=== PATIENT | female | born 1960 ===

== ENCOUNTER 2018-07-09 12:39 | Inpatient (IN) | payer MEDICARE, MEDICAID ==
--- NOTE | 2018-07-09 13:08 | ED PDOC ---
Arrival/HPI - General Chief Complaint: High Blood Pressure Time Seen by Provider: 07/09/18 12:45 Historian: Patient - History of Present Illness Narrative History of Present Illness (Text): 07/09/18 13:05 A 58 year old female, whose past medical history includes HTN, asthma, hypercholesterolemia, DM, and COPD, hypothyroidism, presents to the emergency department with a complaint of left sided body numbness. Patient reports that yesterday she began to experience epigastric abdominal discomfort that radiated towards her chest. Today, at around 10 am, patient reports that she developed numbness to the left side of her face, upper and lower extremity. Patient notes that she has chronic neck and back pain. She states that she has been feeling weak and lightheaded. Patient denies fevers, chills, shortness of breath, dyspnea on exertion, cough, nausea, vomiting, diarrhea, urinary/bowel changes, or any other complaint. PMD: Dr. Armstrong Time/Duration: 4-6 hours Symptom Onset: Sudden Symptom Course: Unchanged Activities at Onset: Rest, Light Context: Home Past Medical History - Provider Review Nursing Documentation Reviewed: Yes - Infectious Disease Hx of Infectious Diseases: None - Tetanus Immunization Tetanus Immunization: Unknown - Cardiac Hx Cardiac Disorders: Yes Hx Hypertension: Yes - Pulmonary Hx Respiratory Disorders: Yes Hx Asthma: Yes Hx Chronic Obstructive Pulmonary Disease (COPD): Yes Hx Emphysema: Yes - Neurological Hx Neurological Disorder: Yes HX Cerebrovascular Accident: Yes Hx Dizziness: Yes Hx Transient Ischemic Attacks (TIA): Yes - HEENT Hx HEENT Disorder: No Hx Deafness: Yes (L [place]) - Renal Hx Renal Disorder: Yes Hx Kidney Stones: Yes - Endocrine/Metabolic Hx Endocrine Disorders: Yes Hx Diabetes Mellitus Type 1: Yes Hx Diabetes Mellitus Type 2: Yes Hx Hypothyroidism: Yes - Hematological/Oncological Hx Blood Disorders: No - Integumentary Hx Dermatological Disorder: No - Musculoskeletal/Rheumatological Hx Musculoskeletal Disorders: Yes Hx Back Pain: Yes Hx Falls: No Hx Herniated Disk: Yes Hx Unsteady Gait: Yes (CANE) - Gastrointestinal Hx Gastrointestinal Disorders: Yes Hx Colostomy: Yes Hx Gastritis: Yes - Genitourinary/Gynecological Hx Genitourinary Disorders: No Hx Bladder Stone: Yes Hx Urinary Tract Infection: Yes Other/Comment: TUMMY TUCK,NUMEROUS ABORTIONS THAT SHE CANNOT REMEMBER HOW MANY. - Psychiatric Hx Psychophysiologic Disorder: No Hx Physical Abuse: No Hx Sexual Abuse: No Hx Substance Use: No Other/Comment: SMOKED CIGARETTES A TEENAGER - Surgical History Hx Cholecystectomy: Yes Hx Hysterectomy: Yes Other/Comment: BREAST IMPLANT REMOVAL AND AUGMENTATION DONE AFTER. - Anesthesia Hx Anesthesia: Yes Hx Anesthesia Reactions: No Hx Malignant Hyperthermia: No - Suicidal Assessment Feels Threatened In Home Enviroment: No Family/Social History - Physician Review Nursing Documentation Reviewed: Yes Family/Social History: No Known Family HX Smoking Status: Never Smoked Hx Alcohol Use: No Hx Substance Use: No Hx Substance Use Treatment: No Allergies/Home Meds Allergies/Adverse Reactions: Allergies apple Allergy (Verified 07/09/18 12:50) SWELLING dennison Allergy (Verified 07/09/18 12:50) SHORTNESS OF BREATH pear Allergy (Verified 07/09/18 12:50) SWELLING Home Medications: Home Meds Medication Instructions Recorded Confirmed Fluticasone/Salmeterol [Advair 1 puff PO DAILY #0 08/25/14 12/01/17 250-50 Diskus] Albuterol 0.083% [Albuterol 0.083% 0.09 % PO TID PRN #0 07/10/15 12/01/17 Inhal Jeannine (2.5 mg/3 ml) UD] Losartan [Cozaar] 50 mg PO DAILY 05/13/17 12/01/17 MetFORMIN [glucoPHAGE] 1,000 mg PO BID 05/13/17 12/01/17 Insulin Degludec [Tresiba 30 unit SQ HS 12/01/17 12/01/17 Flextouch U-100] Review of Systems - Physician Review All systems were reviewed & negative as marked: Yes - Review of Systems Constitutional: absent: Fevers Respiratory: absent: SOB, Cough Gastrointestinal: Abdominal Pain (epigastric abdominal pain). absent: Stool Changes, Diarrhea, Nausea, Vomiting Genitourinary Female: absent: Urine Output Changes Musculoskeletal: Back Pain (chronic), Neck Pain (chronic) Neurological: Other (Lightheaded and weak) Physical Exam Vital Signs Reviewed: Yes Vital Signs Temp Pulse Resp BP Pulse Ox 07/09/18 12:40 98.2 F 76 18 187/107 H 98 Temperature: Afebrile Blood Pressure: Hypertensive Pulse: Regular Respiratory Rate: Normal Appearance: Positive for: Well-Appearing, Non-Toxic, Comfortable Pain Distress: None Mental Status: Positive for: Alert and Oriented X 3 - Systems Exam Head: Present: Atraumatic, Normocephalic, Other (Subjective left sided numbness to left face.) Pupils: Present: PERRL Extroacular Muscles: Present: EOMI Conjunctiva: Present: Normal Mouth: Present: Moist Mucous Membranes Neck: Present: Normal Range of Motion, Paraspinal Tenderness (Left side of neck), Lymphadenopathy Respiratory/Chest: Present: Clear to Auscultation, Good Air Exchange. No: Respiratory Distress, Accessory Muscle Use Cardiovascular: Present: Regular Rate and Rhythm, Normal S1, S2. No: Murmurs Abdomen: No: Tenderness, Distention, Peritoneal Signs Back: Present: Normal Inspection, Paraspinal Tenderness Upper Extremity: Present: Normal Inspection, Neurovascularly Intact (Subjective left sided numbness to left arm. Strength intact). No: Cyanosis, Edema Lower Extremity: Present: Normal Inspection, Neurovascularly Intact (Subjective left sided numbness to left leg. Strength intact). No: Edema Neurological: Present: GCS=15, CN II-XII Intact, Speech Normal, Motor Func Grossly Intact Skin: Present: Warm, Dry, Normal Color. No: Rashes Psychiatric: Present: Alert, Oriented x 3, Normal Insight, Normal Concentration Medical Decision Making ED Course and Treatment: 07/09/18 13:09 Impression: A 58 year old female presents to the emergency department with a complaint of left sided body numbness that began at 10 am today. Differential Diagnosis included but are not limited to: reflux, URI/ viral syndrome, acute on chronic neck and back pain vs. CVA Plan: -- Head CT -- EKG -- Chest X-ray -- Labs -- Reassess and disposition Prior Visits: Notes and results from previous visits were reviewed. Progress Notes: 07/09/18 13:03: Code stroke called. EKG: Ordered, reviewed, and independently interpreted the EKG. Rate : 69 BPM Rhythm : NSR PROCEDURE: CT HEAD WITHOUT CONTRAST. Dictator : Jose E Adams MD Report Date : 07/09/2018 13:22:28 IMPRESSION: Normal CT of the Head. 07/09/18 13:23: Case discussed in detail with Dr. Toledo. Explaining patient history and exam. Patient onset of symptoms clearly defined as 10 am. Patient has left sided numbness of face, arm, and leg. NIH score of 2. BP improved to 153/93. Discussed risk factors of tPA with patient including risk of bleeding. Patient understands and agrees to receiving med as recommended by me and Dr. Toledo. 07/09/18 13:40 Actual weight was entered by CINDY Griffith. TPA ordered with TPA order set. IVF ordered. Blood pressure controlled. 07/09/18 14:11 I started conversation with this patient since 13:23 and it's not till now that she has decided to take the medication. She and I discussed the indications and risk factors with her daughter on the phone as well. The patient agreed to take the medication. 07/09/18 14:13 She was 175/93 blood pressure when I pushed the tPA bolus. Gladis with me at bedside. Chest X-ray Dictator : Jose E Adams MD Report Date : 07/09/2018 14:10:22 IMPRESSION: No active disease. 07/09/18 14:37: Case discussed with Dr. Fernandes who accepts the patient to her service. 07/09/18 14:40: Case discussed with Dr. Tian (Ichthyologist) who accept the patient to the ICU. 07/09/18 14:56 Patient states her left sided numbness feels improved. - Critical Care Critical Care Minutes: 30 minutes - Lab Interpretations I have reviewed the lab results: Yes - RAD Interpretation Radiology Orders: 07/09/18 13:03 HEAD W/O (CODE STROKE) [CT] Stat CHEST PORTABLE [RAD] Stat - EKG Interpretation Interpreted by ED Physician: Yes Type: 12 lead EKG NIHSS Scale ([place]) Time Performed: 12:45 - How Severe is the Stoke Baseline Level of Consciousness: 0=Alert LOC to Questions: 0=Both comments correct LOC to commands: 0=Obeys both correctly Best Gaze: 0=Normal Visual: 0=No visual loss Facial: 0=Normal Motor Arm - Left: 0=No drift Motor Arm - Right: 0=No drift Motor Leg - Left: 0=No drift Motor Leg - Right: 0=No drift Limb Ataxia: 0=Absent Sensory: 1=Mild to moderate loss Best Language: 0=No aphasia Dysarthia: 0=Normal articulation Extinction & Inattention (Neglect): 0=Normal, no object Score: 1 Risk Level: Minor Stroke Risk NIHSS Scale([place]) 2 Time Performed: 14:58 - How Severe is the Stoke Baseline Level of Consciousness: 0=Alert LOC to Questions: 0=Both comments correct LOC to commands: 0=Obeys both correctly Best Gaze: 0=Normal Visual: 0=No visual loss Facial: 0=Normal Motor Arm - Left: 0=No drift Motor Arm - Right: 0=No drift Motor Leg - Left: 0=No drift Motor Leg - Right: 0=No drift Limb Ataxia: 0=Absent Sensory: 1=Mild to moderate loss Best Language: 0=No aphasia Dysarthia: 0=Normal articulation Extinction & Inattention (Neglect): 0=Normal, no object Score: 1 Risk Level: Minor Stroke Risk rTPA Inclusion/Exclusion - Refusal of Treatment Patient Refused Treatment: No - Inclusion Criteria for Altepase Patient is 18 years or Older: Yes The Clinical Diagnosis of Ischemic Stroke That is Causing a Potentially Disabling Neurological Deficit: Yes Time of Onset is Well Established to be Less Than 270 Minute Before Treatment Would Begin: Yes Risk/Benefit Discussed With Patient/Family Member Present: Yes - Exclusion Criteria for Altepase Uncontrolled Hypertension at Time of Treatment (Systolic BP above 185 or Diastolic BP above 110 mmHg): No - Scribe Statement The provider has reviewed the documentation as recorded by the Debraibe Terri Orozco Provider Scribe Attestation: All medical record entries made by the Scribe were at my direction and personally dictated by me. I have reviewed the chart and agree that the record accurately reflects my personal performance of the history, physical exam, medical decision making, and the department course for this patient. I have also personally directed, reviewed, and agree with the discharge instructions and disposition. Disposition/Present on Arrival - Present on Arrival Any Indicators Present on Arrival: No History of DVT/PE: No History of Uncontrolled Diabetes: No Urinary Catheter: No History of Decub. Ulcer: No History Surgical Site Infection Following: None - Disposition Have Diagnosis and Disposition been Completed?: Yes Diagnosis: CVA (cerebral vascular accident) Disposition: HOSPITALIZED Disposition Time: 14:41 Patient Plan: Admission Condition: CRITICAL Referrals: Fred Armstrong MD [Primary Care Provider] - Follow up with primary Forms: [employer] (French)
--- NOTE | 2018-07-09 13:26 | CT ---
Date of service: 07/09/2018 PROCEDURE: CT HEAD WITHOUT CONTRAST. HISTORY: Code Stroke COMPARISON: None available. TECHNIQUE: Axial computed tomography images were obtained through the head/brain without intravenous contrast. Radiation dose: Total exam DLP = 821.78 mGy-cm. This CT exam was performed using one or more of the following dose reduction techniques: Automated exposure control, adjustment of the mA and/or kV according to patient size, and/or use of iterative reconstruction technique. FINDINGS: HEMORRHAGE: No intracranial hemorrhage. BRAIN: No mass effect or edema. No atrophy or chronic microvascular ischemic changes. VENTRICLES: Unremarkable. No hydrocephalus. CALVARIUM: Unremarkable. PARANASAL SINUSES: Unremarkable as visualized. No significant inflammatory changes. MASTOID AIR CELLS: Unremarkable as visualized. No inflammatory changes. OTHER FINDINGS: None. IMPRESSION: Normal CT of the Head.
[2018-07-09 13:28] LABS: BASO # 0.02 K/mm3 (0.0-2.0); BASO % 0.3 % (0.0-3.0); EOS # 0.4 (0.0-0.7); EOS % 6.7 % (1.5-5.0); HEMOGLOBIN 12.5 g/dL (12.0-16.0); LYMPH # 2.2 (1.2-3.4); LYMPH % 37.2 % (22.0-35.0); MEAN CELL VOLUME 88.7 fl (80.0-105.0); MEAN CORPUSCULAR HEMOGLOBIN 28.9 pg (25.0-35.0); MEAN CORPUSCULAR HGB CONC 32.6 g/dl (31.0-37.0); MEAN PLATELET VOLUME 11.2 fl (7.0-11.0); MONO # 0.3 (0.1-0.6); MONO % 5.7 % (1.0-6.0); RBC 4.32 10^6/uL (3.5-6.1); RED CELL DISTRIBUTION WIDTH 13.1 % (11.5-14.5); WHITE BLOOD COUNT 5.8 10^3/uL (4.5-11.0)
[2018-07-09 13:32] LABS: INR 1.12; PARTIAL THROMBOPLASTIN TIME 32.9 Seconds (26.9-38.3); PROTHROMBIN TIME 12.7 SECONDS (9.4-12.5)
[2018-07-09 13:35] VITALS: BMI 35.3
[2018-07-09 13:35] LABS: LDL CHOLESTEROL 95 mg/dL (0-129)
[2018-07-09 13:38] LABS: ALB/GLOB RATIO 1.3 (1.1-1.8); ALT/SGPT 27 U/L (7-56); AST/SGOT 37 U/L (14-36); BLOOD UREA NITROGEN 8 mg/dL (7-21); CALCIUM 10.5 mg/dL (8.4-10.5); GFR NON-AFRICAN AMERICAN > 60; HDL CHOLESTEROL 37 mg/dL (29-60); TROPONIN I < 0.01 ng/mL
[2018-07-09] MEDS ORDERED: Sodium Chloride 0.9% 1,000 ML IV SCH ×2 (13:45→21:49)
--- NOTE | 2018-07-09 14:14 | RAD ---
Date of service: 07/09/2018 HISTORY: Code Stroke COMPARISON: 07/10/2015 FINDINGS: LUNGS: No active pulmonary disease. PLEURA: No significant pleural effusion identified, no pneumothorax apparent. CARDIOVASCULAR: No aortic atherosclerotic calcification present. Normal cardiac size. No pulmonary vascular congestion. OSSEOUS STRUCTURES: No significant abnormalities. VISUALIZED UPPER ABDOMEN: Normal. OTHER FINDINGS: None. IMPRESSION: No active disease.
--- NOTE | 2018-07-09 15:24 | CP.PCM.CON ---
<Rd Rubio - Last Filed: 07/09/18 16:32> History of Present Illness - History of Present Illness History of Present Illness: Rd Rubio, PGY-1 ICU Consult Note for Dr. Joiner: CC: L sided numbness and weakness ICU Consult for: s/p tPA Pt is a 58 yo F with pmhx of TIA (30 yrs ago), HTN, asthma, HLD, DM, COPD, and hypothyroidism who presents for L sided face and body heaviness and numbness that began at 10AM this morning when she was trying to get up out of bed, associated with headache, dizziness described as lightheadedness, and blurry vision. States that headache began yesterday and was mild. Reports taking a tylenol which at the time resolved the pain, but today became worse. For the continued headache this AM she took percocet. Pt called her daughter, who saw her and brought her to the hospital. Daughter did not note facial droop at the time. She has been feeling nauseous and had indigestion since yesterday. Since this AM she also reports headache, dizziness described as lightheadedness, and blurry vision L sided body numbness (face, UE, LE) @ 10AM. In the ED pt was assessed and given tPA. At this time the pt denies fever, headache, numbness, tingling, but does admit to continued LLE heaviness and facial numbness. She denies chest pain, palpitations, SOB, cough, abd pain, n/v, c/d, edema, dysuria. She reports h/o TIA 30 years ago, and has strong family history for stroke. Pmhx: TIA (30 yrs ago), HTN, asthma, HLD, DM, COPD, and hypothyroidism Pshx: radha, hysterectomy All: Apple, dennison, pear Soc: Denies any tobacco hx, denies recent etoh or illicit drug use Fam: Son: [place], PMD: Dr. Armstrong Review of Systems - Review of Systems Review of Systems: 12 point ROS reviewed and negative except noted in HPI above. Past Patient History - Infectious Disease Hx of Infectious Diseases: None - Tetanus Immunizations Tetanus Immunization: Unknown - Past Medical History & Family History Past Medical History?: Yes - Past Social History Smoking Status: Never Smoked - CARDIAC Hx Cardiac Disorders: Yes Hx Hypertension: Yes - PULMONARY Hx Respiratory Disorders: Yes Hx Asthma: Yes Hx Chronic Obstructive Pulmonary Disease (COPD): Yes Hx Emphysema: Yes - NEUROLOGICAL Hx Neurological Disorder: Yes HX Cerebrovascular Accident: Yes Hx Dizziness: Yes Hx Transient Ischemic Attacks (TIA): Yes - HEENT Hx HEENT Problems: No Hx Deafness: Yes (L [place]ARAC[place]) - RENAL Hx Chronic Kidney Disease: Yes Hx Kidney Stones: Yes - ENDOCRINE/METABOLIC Hx Endocrine Disorders: Yes Hx Diabetes Mellitus Type 1: Yes Hx Diabetes Mellitus Type 2: Yes Hx Hypothyroidism: Yes - HEMATOLOGICAL/ONCOLOGICAL Hx Blood Disorders: No - INTEGUMENTARY Hx Dermatological Problems: No - MUSCULOSKELETAL/RHEUMATOLOGICAL Hx Musculoskeletal Disorders: Yes Hx Back Pain: Yes Hx Falls: No Hx Herniated Disk: Yes Hx Unsteady Gait: Yes (CANE) - GASTROINTESTINAL Hx Gastrointestinal Disorders: Yes Hx Colostomy: Yes Hx Gastritis: Yes - GENITOURINARY/GYNECOLOGICAL Hx Genitourinary Disorders: No Hx Bladder Stone: Yes Hx Urinary Tract Infection: Yes Other/Comment: TUMMY TUCK,NUMEROUS ABORTIONS THAT SHE CANNOT REMEMBER HOW MANY. - PSYCHIATRIC Hx Psychophysiologic Disorder: No Hx Physical Abuse: No Hx Sexual Abuse: No Hx Substance Use: No Other/Comment: SMOKED CIGARETTES A TEENAGER - SURGICAL HISTORY Hx Cholecystectomy: Yes Hx Hysterectomy: Yes Other/Comment: BREAST IMPLANT REMOVAL AND AUGMENTATION DONE AFTER. - ANESTHESIA Hx Anesthesia: Yes Hx Anesthesia Reactions: No Hx Malignant Hyperthermia: No Meds Allergies/Adverse Reactions: Allergies Allergy/AdvReac Type Severity Reaction Status Date / Time apple Allergy SWELLING Verified 07/09/18 12:50 dennison Allergy SHORTNESS Verified 07/09/18 12:50 OF BREATH pear Allergy SWELLING Verified 07/09/18 12:50 - Medications Medications: Current Medications Sodium Chloride (Sodium Chloride 0.9%) 1,000 mls @ 100 mls/hr IV .Q10H [facility] Last Admin: 07/09/18 14:20 Dose: 100 mls/hr Physical Exam - Constitutional Appears: Non-toxic, No Acute Distress - Head Exam Head Exam: ATRAUMATIC, NORMAL INSPECTION, NORMOCEPHALIC - Eye Exam Eye Exam: EOMI, Normal appearance, PERRL - Respiratory Exam Respiratory Exam: Clear to Auscultation Bilateral, NORMAL BREATHING PATTERN. absent: Accessory Muscle Use, Decreased Breath Sounds, Rales, Rhonchi, Resp iratory Distress, Stridor - Cardiovascular Exam Cardiovascular Exam: RRR, +S1, +S2. absent: Gallop, Rubs - GI/Abdominal Exam GI & Abdominal Exam: Normal Bowel Sounds, Soft. absent: Guarding, Hernia, Rebound, Rigid, Tenderness - Extremities Exam Extremities exam: Positive for: normal capillary refill, normal inspection, pedal pulses present. Negative for: calf tenderness, pedal edema - Back Exam Back exam: NORMAL INSPECTION. absent: CVA tenderness (L), CVA tenderness (R) - Neurological Exam Neurological exam: Alert, Oriented x3 - Expanded Neurological Exam Expanded Patient oriented to: person, place, time Cranial nerves: EOM's Intact: Normal, Facial Palsey w/Forehead Movement: Normal, Facial Sensation: Abnormal Left (States doesnt feel as strong on left but she can feel it ), Nystagmus: Normal, Tongue Deviation: Normal Cerebellar Function: Finger to Nose: Normal, Heel to Mccall: Normal Upper motor neuron: Pronator Drift: Normal, Sensory Extinction: Normal Neuro motor strength exam: Left Upper Extremity: 5, Right Upper Extremity: 5, Left Lower Extremity: 5, Right Lower Extremity: 5 Coma Scale Eye Opening: SPONTANEOUS Coma Scale Motor Response: OBEYS COMMANDS Coma Scale Verbal: Oriented Coma Scale Total: 15 - Psychiatric Exam Psychiatric exam: Normal Affect, Normal Mood - Skin Skin Exam: Dry, Normal Color, Warm Results - Vital Signs Recent Vital Signs: Last Vital Signs Temp 98.2 F 07/09/18 15:15 Pulse 64 07/09/18 15:15 Resp 15 07/09/18 15:15 BP 167/70 H 07/09/18 15:15 Pulse Ox 98 07/09/18 12:40 - Labs Result Diagrams: 07/09/18 13:05 07/09/18 13:05 Labs: Laboratory Results - last 24 hr 07/09/18 07/09/18 07/09/18 13:05 13:05 13:05 WBC 5.8 RBC 4.32 Hgb 12.5 Hct 38.3 MCV 88.7 MCH 28.9 MCHC 32.6 RDW 13.1 Plt Count 167 MPV 11.2 H Neut % (Auto) 50.1 Lymph % (Auto) 37.2 H Sumner % (Auto) 5.7 Eos % (Auto) 6.7 H Baso % (Auto) 0.3 Lymph # (Auto) 2.2 Sumner # (Auto) 0.3 Eos # (Auto) 0.4 Baso # (Auto) 0.02 Absolute Neuts (auto) 2.93 PT 12.7 H INR 1.12 APTT 32.9 Sodium 138 Potassium 4.0 Chloride 105 Carbon Dioxide 25 Anion Gap 12 BUN 8 Creatinine 0.5 L Est GFR ( Amer) > 60 Est GFR (Non-Af Amer) > 60 POC Glucose (mg/dL) Random Glucose 276 H Calcium 10.5 Total Bilirubin 0.4 AST 37 H ALT 27 Alkaline Phosphatase 121 Troponin I < 0.01 Total Protein 7.2 Albumin 4.0 Globulin 3.2 Albumin/Globulin Ratio 1.3 Triglycerides 263 H Cholesterol 153 LDL Cholesterol Direct 95 HDL Cholesterol 37 Lipase Blood Type Antibody Screen BBK History Checked 07/09/18 07/09/18 07/09/18 13:05 13:05 13:58 WBC RBC Hgb Hct MCV MCH MCHC RDW Plt Count MPV Neut % (Auto) Lymph % (Auto) Sumner % (Auto) Eos % (Auto) Baso % (Auto) Lymph # (Auto) Sumner # (Auto) Eos # (Auto) Baso # (Auto) Absolute Neuts (auto) PT INR APTT Sodium Potassium Chloride Carbon Dioxide Anion Gap BUN Creatinine Est GFR ( Amer) Est GFR (Non-Af Amer) POC Glucose (mg/dL) 225 H Random Glucose Calcium Total Bilirubin AST ALT Alkaline Phosphatase Troponin I Total Protein Albumin Globulin Albumin/Globulin Ratio Triglycerides Cholesterol LDL Cholesterol Direct HDL Cholesterol Lipase 165 Blood Type O POSITIVE Antibody Screen Negative BBK History Checked Patient has bt Assessment & Plan - Assessment and Plan (Free Text) Assessment: Pt is a 58 yo F with pmhx of TIA (30 yrs ago), HTN, asthma, HLD, DM, COPD, and hypothyroidism who presents for L sided face and body heaviness and numbness that began at 10AM this morning when she was trying to get up out of bed, associated with headache, dizziness described as lightheadedness, and blurry vision. Plan: Neuro: Ischemic Stroke s/p tPA @ 2:17pm on 07/09/18: - Head CT 07/09 shows: Normal head CT - Pt given tPA as stated - Will continue neurochecks q1 and BP monitoring as per protocol - Will ensure that SBP remains <150 - NIHSS Stroke scale at this time is: 0 (pt assessed after tPA given) - Echo - Hold ASA and other anti-coag meds as pt is on TPA - A1c - Lipid panel - B12, folate, Homocystiene - TSH - f/u CT head in AM Cardio: - Cont home cozaar - As above ensure SBP <150 - Ensure MAP >65 Pulm: - Duoneb PRN - Ensure O2 sat >92 GI: - Protonix for prophylaxis - Passed swallow eval Endo: - Ensure euglycemia and will cont to monitor BS overnight Nephro: - Maintain euvolemia PPx: GI: Protonix DVT: On tPA. Case seen and discussed with Dr. Marisel Rubio, PGY-1 <William Joiner - Last Filed: 07/09/18 17:05> Meds - Medications Medications: Current Medications Albuterol/Ipratropium (Duoneb 3 Mg/0.5 Mg (3 Ml) Ud) 3 ml IH Q2H PRN PRN Reason: Shortness of Breath Atorvastatin Calcium (Lipitor) 10 mg PO DAILY [facility] Sodium Chloride (Sodium Chloride 0.9%) 1,000 mls @ 100 mls/hr IV .Q10H [facility] Last Admin: 07/09/18 14:20 Dose: 100 mls/hr Losartan Potassium (Cozaar) 50 mg PO DAILY [facility] Results - Vital Signs Recent Vital Signs: Last Vital Signs Temp 98.1 F 07/09/18 16:30 Pulse 64 07/09/18 16:30 Resp 16 07/09/18 16:30 BP 149/77 07/09/18 16:30 Pulse Ox 98 07/09/18 12:40 - Labs Result Diagrams: 07/09/18 13:05 07/09/18 13:05 Labs: Laboratory Results - last 24 hr 07/09/18 07/09/18 07/09/18 13:05 13:05 13:05 WBC 5.8 RBC 4.32 Hgb 12.5 Hct 38.3 MCV 88.7 MCH 28.9 MCHC 32.6 RDW 13.1 Plt Count 167 MPV 11.2 H Neut % (Auto) 50.1 Lymph % (Auto) 37.2 H Sumner % (Auto) 5.7 Eos % (Auto) 6.7 H Baso % (Auto) 0.3 Lymph # (Auto) 2.2 Sumner # (Auto) 0.3 Eos # (Auto) 0.4 Baso # (Auto) 0.02 Absolute Neuts (auto) 2.93 PT 12.7 H INR 1.12 APTT 32.9 Sodium 138 Potassium 4.0 Chloride 105 Carbon Dioxide 25 Anion Gap 12 BUN 8 Creatinine 0.5 L Est GFR ( Amer) > 60 Est GFR (Non-Af Amer) > 60 POC Glucose (mg/dL) Random Glucose 276 H Hemoglobin A1c Calcium 10.5 Total Bilirubin 0.4 AST 37 H ALT 27 Alkaline Phosphatase 121 Troponin I < 0.01 Total Protein 7.2 Albumin 4.0 Globulin 3.2 Albumin/Globulin Ratio 1.3 Triglycerides 263 H Cholesterol 153 LDL Cholesterol Direct 95 HDL Cholesterol 37 Lipase Blood Type Antibody Screen BBK History Checked 07/09/18 07/09/18 07/09/18 13:05 13:05 13:05 WBC RBC Hgb Hct MCV MCH MCHC RDW Plt Count MPV Neut % (Auto) Lymph % (Auto) Sumner % (Auto) Eos % (Auto) Baso % (Auto) Lymph # (Auto) Sumner # (Auto) Eos # (Auto) Baso # (Auto) Absolute Neuts (auto) PT INR APTT Sodium Potassium Chloride Carbon Dioxide Anion Gap BUN Creatinine Est GFR ( Amer) Est GFR (Non-Af Amer) POC Glucose (mg/dL) Random Glucose Hemoglobin A1c 8.8 H Calcium Total Bilirubin AST ALT Alkaline Phosphatase Troponin I Total Protein Albumin Globulin Albumin/Globulin Ratio Triglycerides Cholesterol LDL Cholesterol Direct HDL Cholesterol Lipase 165 Blood Type O POSITIVE Antibody Screen Negative BBK History Checked Patient has bt 07/09/18 13:58 WBC RBC Hgb Hct MCV MCH MCHC RDW Plt Count MPV Neut % (Auto) Lymph % (Auto) Sumner % (Auto) Eos % (Auto) Baso % (Auto) Lymph # (Auto) Sumner # (Auto) Eos # (Auto) Baso # (Auto) Absolute Neuts (auto) PT INR APTT Sodium Potassium Chloride Carbon Dioxide Anion Gap BUN Creatinine Est GFR ( Amer) Est GFR (Non-Af Amer) POC Glucose (mg/dL) 225 H Random Glucose Hemoglobin A1c Calcium Total Bilirubin AST ALT Alkaline Phosphatase Troponin I Total Protein Albumin Globulin Albumin/Globulin Ratio Triglycerides Cholesterol LDL Cholesterol Direct HDL Cholesterol Lipase Blood Type Antibody Screen BBK History Checked Assessment & Plan - Assessment and Plan (Free Text) Plan: Patient seen and examined on rounds, with resident, agree with note with following additions/exceptions: Patient is 58 yo F with pmhx of TIA (30 yrs ago), HTN, asthma, HLD, DM, COPD, and hypothyroidism who presents for L sided face and body heaviness and numbness that began at 10AM, given tPA in the ER, after consultation with Neurology. CTH neg. Currently afebrile, HD stable, comfortable in NAD, doing well. Motor strength 5/5 all ext, sensory decreased on left side. ECHO Check Lipid panel, TSH, HgbA1C q1hr Neuro check follow up neurology CTH in AM GI ppx DVT ppx, SCDs Monitor in MICU
--- NOTE | 2018-07-09 16:13 | CARD ---
APPROVED REPORT Date of service: 07/09/2018 EKG Measurement Heart [id number] <Conclusion> Normal sinus rhythm Nonspecific T wave abnormality Abnormal ECG
[2018-07-09] MEDS ORDERED: Albuterol-Ipratrop 3 mg / 0.5 (3 ml) UD IH PRN (16:46)
[2018-07-09] MEDS: Insulin Lispro (HUMAlog) HIGH Coverage SC SCH (22:07)
--- NOTE | 2018-07-10 03:31 | HP ---
DATE OF EXAM: 07/09/2018 HISTORY OF PRESENT ILLNESS: The patient is a 58-year-old who was brought to emergency room because of left-sided numbness, left upper and lower extremity numbness. She has epigastric discomfort later on radiated towards chest area. Denies any nausea or vomiting. The patient states this morning she started to have left facial, upper and lower extremity numbness with some weakness and she was feeling dizzy and lightheaded, so came to emergency room. She met the criteria, she has TPA given and being transferred to ICU for close observation. PAST MEDICAL HISTORY: Significant for: 1. Hypertension. 2. Hyperlipidemia. 3. Noninsulin-dependent diabetes. 4. Hypothyroidism. 5. History of COPD. 6. She also has history of TIA 30 years ago. SURGICAL HISTORY: Significant for cholecystectomy and hysterectomy. FAMILY HISTORY: Significant for CVA in parents. ALLERGIES: SHE IS ALLERGIC TO APPLE, CHERRIES AND PEARS. SOCIAL HISTORY: Denies smoking. No alcohol use. MEDICATIONS AT HOME: She is on Percocet as needed, omeprazole 40 mg daily, Lipitor 10 mg daily, metformin 1000 twice a day, Losartan 50 mg daily, nebulizer treatment. PHYSICAL EXAMINATION GENERAL: She is awake, alert, oriented, able to communicate. VITAL SIGNS: She is afebrile, pulse 63, respirations 15, blood pressure 146/89. LUNGS: Bilateral fair airflow. No rhonchi or crackle. HEART: S1, S2 audible. ABDOMEN: Soft, nontender. No rebound. No guarding. NEUROLOGIC: The patient is awake, alert, able to communicate. No focal deficits. LABORATORY DATA: WBC 5.8, hemoglobin 12.5, hematocrit 38.3, platelets of 167. PT 12.7, INR 1.12. Chemistry: Sodium 138, potassium 4.0, chloride 105, CO2 of 25, BUN 8, creatinine 0.5, blood sugar 276, triglycerides of 263. She had CT scan of the head done that is unremarkable. EKG shows normal sinus rhythm. X-ray of chest is unremarkable. ASSESSMENT: 1. Left sided numbness status post TPA being admitted in intensive care unit. 2. Noninsulin-dependent diabetes. 3. Hypertension. 4. Hyperlipidemia. 5. History of transient ischemic attack almost 38 years ago. PLAN: This patient is being admitted in ICU. Monitor blood sugar and monitor blood pressure closely. Echocardiogram is ordered. Follow up electrolyte and CBC. Lyssa Fernandes MD
--- NOTE | 2018-07-10 06:04 | CP.PCM.PN ---
Subjective - Date & Time of Evaluation Date of Evaluation: 07/10/18 Time of Evaluation: 06:00 - Subjective Subjective: Cozaar was ordered by resident for elevated blood pressure. I ordered Cardene 20 mg PO x 1 . Asymptomtic. Medical record was reviewed. Objective - Vital Signs/Intake and Output Vital Signs (last 24 hours): Temp Pulse Resp BP Pulse Ox 98 F 68 17 132/69 93 L 07/10/18 04:00 07/10/18 04:00 07/10/18 03:00 07/10/18 04:36 07/10/18 03:00 - Medications Medications: Current Medications Albuterol/Ipratropium (Duoneb 3 Mg/0.5 Mg (3 Ml) Ud) 3 ml IH Q2H PRN PRN Reason: Shortness of Breath Atorvastatin Calcium (Lipitor) 10 mg PO DAILY [facility] Sodium Chloride (Sodium Chloride 0.9%) 1,000 mls @ 50 mls/hr IV .Q20H [facility] Last Admin: 07/09/18 22:05 Dose: 50 mls/hr Insulin Human Lispro (Humalog High) 0 units SC ACHS [facility]; Protocol Last Admin: 07/09/18 22:07 Dose: Not Given Losartan Potassium (Cozaar) 50 mg PO DAILY [facility] Metformin HCl (Glucophage) 500 mg PO BID [facility] Last Admin: 07/09/18 20:00 Dose: 500 mg Pantoprazole Sodium (Protonix Inj) 40 mg IVP DAILY [facility] - Labs Labs: 07/09/18 13:05 07/09/18 13:05 PT 12.7 SECONDS (9.4-12.5) H 07/09/18 13:05 INR 1.12 07/09/18 13:05 APTT 32.9 Seconds (26.9-38.3) 07/09/18 13:05 - Constitutional Appears: Well, No Acute Distress - Head Exam Head Exam: ATRAUMATIC, NORMAL INSPECTION, NORMOCEPHALIC - Eye Exam Eye Exam: Normal appearance - ENT Exam ENT Exam: Normal External Ear Exam - Neck Exam Neck Exam: Normal Inspection - Respiratory Exam Respiratory Exam: NORMAL BREATHING PATTERN - Cardiovascular Exam Cardiovascular Exam: absent: JVD - GI/Abdominal Exam GI & Abdominal Exam: absent: Distended - Rectal Exam Rectal Exam: Deferred - Exam Additional comments: Deferred. - Extremities Exam Extremities Exam: Normal Inspection - Back Exam Back Exam: NORMAL INSPECTION - Neurological Exam Neurological Exam: Alert, Awake - Psychiatric Exam Psychiatric exam: Normal Affect, Normal Mood Assessment and Plan - Assessment and Plan (Free Text) Assessment: Elevatged blood pressure. Left sided numbness. HTN. HLD. NIDDM. Plan: Cardene 20 mg PO x 1.
[2018-07-10 06:24] LABS: BASO # 0.04 K/mm3 (0.0-2.0); BASO % 0.6 % (0.0-3.0); EOS # 0.4 (0.0-0.7); EOS % 6.3 % (1.5-5.0); HEMOGLOBIN 12.5 g/dL (12.0-16.0); LYMPH # 2.6 (1.2-3.4); LYMPH % 37.7 % (22.0-35.0); MEAN CORPUSCULAR HEMOGLOBIN 28.5 pg (25.0-35.0); MEAN CORPUSCULAR HGB CONC 32.1 g/dl (31.0-37.0); MEAN PLATELET VOLUME 11.2 fl (7.0-11.0); MONO # 0.4 (0.1-0.6); RBC 4.38 10^6/uL (3.5-6.1); RED CELL DISTRIBUTION WIDTH 13.4 % (11.5-14.5)
[2018-07-10 06:25] LABS: ALB/GLOB RATIO 1.2 (1.1-1.8); ALBUMIN 3.7 g/dL (3.0-4.8); ALT/SGPT 29 U/L (7-56); AST/SGOT 38 U/L (14-36); BLOOD UREA NITROGEN 9 mg/dL (7-21); CALCIUM 9.9 mg/dL (8.4-10.5); GFR NON-AFRICAN AMERICAN > 60; HDL CHOLESTEROL 33 mg/dL (29-60)
[2018-07-10 06:36] LABS: LDL CHOLESTEROL 95 mg/dL (0-129)
[2018-07-10] MEDS: Insulin Lispro (HUMAlog) HIGH Coverage SC SCH ×4 (08:07→22:57)
--- NOTE | 2018-07-10 08:37 | CT ---
Date of service: 07/10/2018 PROCEDURE: CT HEAD WITHOUT CONTRAST. HISTORY: Stroke s/p tPA COMPARISON: Noncontrast head CT performed 07/09/18 TECHNIQUE: Axial computed tomography images were obtained through the head/brain without intravenous contrast. Radiation dose: Total exam DLP = 821.55 mGy-cm. This CT exam was performed using one or more of the following dose reduction techniques: Automated exposure control, adjustment of the mA and/or kV according to patient size, and/or use of iterative reconstruction technique. FINDINGS: HEMORRHAGE: No intracranial hemorrhage. BRAIN: No mass effect or edema. The sampson-white matter differentiation appears intact. Please note that MRI with diffusion imaging is more sensitive in the detection of acute ischemic event. VENTRICLES: No hydrocephalus. CALVARIUM: Unremarkable. PARANASAL SINUSES: Unremarkable as visualized. No significant inflammatory changes. MASTOID AIR CELLS: Unremarkable as visualized. No inflammatory changes. OTHER FINDINGS: None. IMPRESSION: No acute intracranial pathology identified. Preliminary impression was provided by [place].
--- NOTE | 2018-07-10 09:36 | CP.CCUPN ---
<RamiroSultana - Last Filed: 07/10/18 11:00> CCU Subjective - Physician Review Subjective (Free Text): 07/10/18 09:32 Rd Rubio, PGY-1 ICU Progress Note: Pt was seen and examined this AM at bedside. Pt denies any acute complaints at this time and states that she is feeling much better than she was feeling yesterday. Pt denies feeling any of the numbness or heaviness that she was feeling yesterday and admits that she started feeling better soon after the medication was started. At this time the pt denies fevers, chills, headache, lightheadedness, dizziness, numbness, tingling, weakness, chest pain, palpitations, SOB, cough, hemoptysis, abd pain, n/v, c/d, hematemesis, melena, hematochezia, dysuria, hematuria, R sided or L sided weakness, or heaviness. She denies any other acute complaints at this time. CCU Objective - Vital Signs / Intake & Output Vital Signs (Last 4 hours): Vital Signs Pulse Resp BP Pulse Ox 07/10/18 08:26 63 177/82 H 07/10/18 06:30 61 17 96 07/10/18 06:00 66 20 94 L 07/10/18 05:51 62 19 154/73 H 95 07/10/18 05:44 95 Intake and Output (Last 8hrs): Intake & Output 07/09/18 07/10/18 07/10/18 22:59 06:59 14:59 Intake Total 800 Output Total 1200 Balance -400 Weight 199 lb 9.6 oz Intake: IV 600 Right Forearm 600 Oral 200 Output: Urine 1200 Urine, Voided 1200 Other: Voiding Method Bedpan - Physical Exam Head: Positive for: Atraumatic, Normocephalic. Negative for: Contusion, Ecchymosis Pupils: Positive for: PERRL Extroacular Muscles: Positive for: EOMI Conjunctiva: Positive for: Normal Mouth: Positive for: Moist Mucous Membranes Neck: Positive for: Normal Range of Motion, Lymphadenopathy Respiratory/Chest: Positive for: Clear to Auscultation, Good Air Exchange. Negative for: Respiratory Distress, Accessory Muscle Use Cardiovascular: Positive for: Regular Rate and Rhythm, Normal S1, S2. Negative for: Murmurs Abdomen: Positive for: Normal Bowel Sounds. Negative for: Tenderness, Distention, Peritoneal Signs, Rebound Back: Positive for: Normal Inspection. Negative for: CVA Tenderness, Midline Tenderness Upper Extremity: Positive for: Normal Inspection, Normal ROM, NORMAL PULSES, Neurovascularly Intact. Negative for: Cyanosis, Edema Lower Extremity: Positive for: Normal Inspection, Neurovascularly Intact, Capillary Refill < 2 s. Negative for: Edema Neurological: Positive for: GCS=15, CN II-XII Intact, Speech Normal, Motor Func Grossly Intact, Normal Sensory Function, Normal Cerebellar Funct, Memory Normal Skin: Positive for: Warm, Dry, Normal Color. Negative for: Rashes Psychiatric: Positive for: Alert, Oriented x 3, Normal Insight, Normal Concentration Other physical findings (Free Text): Patient oriented to: person, place, time Cranial nerves: EOM's Intact: Normal, Facial Palsey w/Forehead Movement: Normal, Facial Sensation: Abnormal Left (States doesnt feel as strong on left but she can feel it ), Nystagmus: Normal, Tongue Deviation: Normal Cerebellar Function: Finger to Nose: Normal, Heel to Mccall: Normal Upper motor neuron: Pronator Drift: Normal, Sensory Extinction: Normal Neuro motor strength exam: Left Upper Extremity: 5, Right Upper Extremity: 5, Left Lower Extremity: 5, Right Lower Extremity: 5 Coma Scale Eye Opening: SPONTANEOUS Coma Scale Motor Response: OBEYS COMMANDS Coma Scale Verbal: Oriented Coma Scale Total: 15 - Medications Active Medications: Active Medications Generic Name Dose Route Start Last Admin Trade Name Freq PRN Reason Stop Dose Admin Albuterol/Ipratropium 3 ml 07/09/18 16:46 Duoneb 3 Mg/0.5 Mg (3 Ml) Ud IH Q2H PRN Shortness of Breath Atorvastatin Calcium 10 mg 07/10/18 10:00 Lipitor PO DAILY [facility] Hydralazine HCl 10 mg 07/10/18 09:30 Apresoline IVP 07/10/18 09:31 ONCE ONE Sodium Chloride 1,000 mls @ 50 mls/hr 07/09/18 21:49 07/09/18 22:05 Sodium Chloride 0.9% IV 50 mls/hr .Q20H [facility] Administration Insulin Human Lispro 0 units 07/09/18 22:00 07/10/18 08:07 Humalog High SC Not Given ACHS [facility] Protocol Losartan Potassium 50 mg 07/10/18 10:00 07/10/18 08:26 Cozaar PO 50 mg DAILY [facility] Administration Metformin HCl 500 mg 07/09/18 19:30 07/09/18 20:00 Glucophage PO 500 mg BID [facility] Administration Pantoprazole Sodium 40 mg 07/10/18 10:00 Protonix Inj IVP DAILY [facility] - Patient Studies Lab Studies: Lab Studies 07/10/18 07/10/18 07/10/18 Range/Units 06:00 06:00 06:00 WBC 7.0 D (4.5-11.0) 10^3/uL RBC 4.38 (3.5-6.1) 10^6/uL Hgb 12.5 (12.0-16.0) g/dL Hct 39.0 (36.0-48.0) % MCV 89.0 (80.0-105.0) fl MCH 28.5 (25.0-35.0) pg MCHC 32.1 (31.0-37.0) g/dl RDW 13.4 (11.5-14.5) % Plt Count 177 (120.0-450.0) 10^3/uL MPV 11.2 H (7.0-11.0) fl Neut % (Auto) 50.4 (50.0-68.0) % Lymph % (Auto) 37.7 H (22.0-35.0) % [place] % (Auto) 5.0 (1.0-6.0) % Eos % (Auto) 6.3 H (1.5-5.0) % Baso % (Auto) 0.6 (0.0-3.0) % Lymph # (Auto) 2.6 (1.2-3.4) [place] # (Auto) 0.4 (0.1-0.6) Eos # (Auto) 0.4 (0.0-0.7) Baso # (Auto) 0.04 (0.0-2.0) K/mm3 Absolute Neuts (auto) 3.50 (1.4-6.5) PT (9.4-12.5) SECONDS INR APTT (26.9-38.3) Seconds Sodium 140 (132-148) mmol/L Potassium 4.1 (3.6-5.0) mmol/L Chloride 109 H (98-107) mmol/L Carbon Dioxide 25 (21-33) mmol/L Anion Gap 10 (10-20) BUN 9 (7-21) mg/dL Creatinine 0.5 L (0.7-1.2) mg/dl Est GFR ( Amer) > 60 Est GFR (Non-Af Amer) > 60 POC Glucose (mg/dL) (65-110) mg/dL Random Glucose 137 H (70-110) mg/dL Hemoglobin A1c (4.2-6.5) % Calcium 9.9 (8.4-10.5) mg/dL Total Bilirubin 0.4 (0.2-1.3) mg/dL AST 38 H (14-36) U/L ALT 29 (7-56) U/L Alkaline Phosphatase 99 (38-126) U/L Troponin I ng/mL Total Protein 6.8 (5.8-8.3) g/dL Albumin 3.7 (3.0-4.8) g/dL Globulin 3.1 gm/dL Albumin/Globulin Ratio 1.2 (1.1-1.8) Triglycerides 218 H (35-160) mg/dL Cholesterol 156 (130-200) mg/dL LDL Cholesterol Direct 95 (0-129) mg/dL HDL Cholesterol 33 (29-60) mg/dL Lipase (23-300) U/L TSH 3rd Generation 3.26 (0.46-4.68) mIU/mL Blood Type Antibody Screen BBK History Checked 07/09/18 07/09/18 07/09/18 Range/Units 21:29 13:58 13:05 WBC (4.5-11.0) 10^3/uL RBC (3.5-6.1) 10^6/uL Hgb (12.0-16.0) g/dL Hct (36.0-48.0) % MCV (80.0-105.0) fl MCH (25.0-35.0) pg MCHC (31.0-37.0) g/dl RDW (11.5-14.5) % Plt Count (120.0-450.0) 10^3/uL MPV (7.0-11.0) fl Neut % (Auto) (50.0-68.0) % Lymph % (Auto) (22.0-35.0) % [place] % (Auto) (1.0-6.0) % Eos % (Auto) (1.5-5.0) % Baso % (Auto) (0.0-3.0) % Lymph # (Auto) (1.2-3.4) [place] # (Auto) (0.1-0.6) Eos # (Auto) (0.0-0.7) Baso # (Auto) (0.0-2.0) K/mm3 Absolute Neuts (auto) (1.4-6.5) PT (9.4-12.5) SECONDS INR APTT (26.9-38.3) Seconds Sodium (132-148) mmol/L Potassium (3.6-5.0) mmol/L Chloride (98-107) mmol/L Carbon Dioxide (21-33) mmol/L Anion Gap (10-20) BUN (7-21) mg/dL Creatinine (0.7-1.2) mg/dl Est GFR ( Amer) Est GFR (Non-Af Amer) POC Glucose (mg/dL) 145 H 225 H (65-110) mg/dL Random Glucose (70-110) mg/dL Hemoglobin A1c (4.2-6.5) % Calcium (8.4-10.5) mg/dL Total Bilirubin (0.2-1.3) mg/dL AST (14-36) U/L ALT (7-56) U/L Alkaline Phosphatase (38-126) U/L Troponin I ng/mL Total Protein (5.8-8.3) g/dL Albumin (3.0-4.8) g/dL Globulin gm/dL Albumin/Globulin Ratio (1.1-1.8) Triglycerides (35-160) mg/dL Cholesterol (130-200) mg/dL LDL Cholesterol Direct (0-129) mg/dL HDL Cholesterol (29-60) mg/dL Lipase 165 (23-300) U/L TSH 3rd Generation (0.46-4.68) mIU/mL Blood Type Antibody Screen BBK History Checked 07/09/18 07/09/18 07/09/18 Range/Units 13:05 13:05 13:05 WBC (4.5-11.0) 10^3/uL RBC (3.5-6.1) 10^6/uL Hgb (12.0-16.0) g/dL Hct (36.0-48.0) % MCV (80.0-105.0) fl MCH (25.0-35.0) pg MCHC (31.0-37.0) g/dl RDW (11.5-14.5) % Plt Count (120.0-450.0) 10^3/uL MPV (7.0-11.0) fl Neut % (Auto) (50.0-68.0) % Lymph % (Auto) (22.0-35.0) % [place] % (Auto) (1.0-6.0) % Eos % (Auto) (1.5-5.0) % Baso % (Auto) (0.0-3.0) % Lymph # (Auto) (1.2-3.4) [place] # (Auto) (0.1-0.6) Eos # (Auto) (0.0-0.7) Baso # (Auto) (0.0-2.0) K/mm3 Absolute Neuts (auto) (1.4-6.5) PT (9.4-12.5) SECONDS INR APTT (26.9-38.3) Seconds Sodium 138 (132-148) mmol/L Potassium 4.0 (3.6-5.0) mmol/L Chloride 105 (98-107) mmol/L Carbon Dioxide 25 (21-33) mmol/L Anion Gap 12 (10-20) BUN 8 (7-21) mg/dL Creatinine 0.5 L (0.7-1.2) mg/dl Est GFR ( Amer) > 60 Est GFR (Non-Af Amer) > 60 POC Glucose (mg/dL) (65-110) mg/dL Random Glucose 276 H (70-110) mg/dL Hemoglobin A1c 8.8 H (4.2-6.5) % Calcium 10.5 (8.4-10.5) mg/dL Total Bilirubin 0.4 (0.2-1.3) mg/dL AST 37 H (14-36) U/L ALT 27 (7-56) U/L Alkaline Phosphatase 121 (38-126) U/L Troponin I < 0.01 ng/mL Total Protein 7.2 (5.8-8.3) g/dL Albumin 4.0 (3.0-4.8) g/dL Globulin 3.2 gm/dL Albumin/Globulin Ratio 1.3 (1.1-1.8) Triglycerides 263 H (35-160) mg/dL Cholesterol 153 (130-200) mg/dL LDL Cholesterol Direct 95 (0-129) mg/dL HDL Cholesterol 37 (29-60) mg/dL Lipase (23-300) U/L TSH 3rd Generation (0.46-4.68) mIU/mL Blood Type O POSITIVE Antibody Screen Negative BBK History Checked Patient has bt 07/09/18 07/09/18 Range/Units 13:05 13:05 WBC 5.8 (4.5-11.0) 10^3/uL RBC 4.32 (3.5-6.1) 10^6/uL Hgb 12.5 (12.0-16.0) g/dL Hct 38.3 (36.0-48.0) % MCV 88.7 (80.0-105.0) fl MCH 28.9 (25.0-35.0) pg MCHC 32.6 (31.0-37.0) g/dl RDW 13.1 (11.5-14.5) % Plt Count 167 (120.0-450.0) 10^3/uL MPV 11.2 H (7.0-11.0) fl Neut % (Auto) 50.1 (50.0-68.0) % Lymph % (Auto) 37.2 H (22.0-35.0) % [place] % (Auto) 5.7 (1.0-6.0) % Eos % (Auto) 6.7 H (1.5-5.0) % Baso % (Auto) 0.3 (0.0-3.0) % Lymph # (Auto) 2.2 (1.2-3.4) [place] # (Auto) 0.3 (0.1-0.6) Eos # (Auto) 0.4 (0.0-0.7) Baso # (Auto) 0.02 (0.0-2.0) K/mm3 Absolute Neuts (auto) 2.93 (1.4-6.5) PT 12.7 H (9.4-12.5) SECONDS INR 1.12 APTT 32.9 (26.9-38.3) Seconds Sodium (132-148) mmol/L Potassium (3.6-5.0) mmol/L Chloride (98-107) mmol/L Carbon Dioxide (21-33) mmol/L Anion Gap (10-20) BUN (7-21) mg/dL Creatinine (0.7-1.2) mg/dl Est GFR ( Amer) Est GFR (Non-Af Amer) POC Glucose (mg/dL) (65-110) mg/dL Random Glucose (70-110) mg/dL Hemoglobin A1c (4.2-6.5) % Calcium (8.4-10.5) mg/dL Total Bilirubin (0.2-1.3) mg/dL AST (14-36) U/L ALT (7-56) U/L Alkaline Phosphatase (38-126) U/L Troponin I ng/mL Total Protein (5.8-8.3) g/dL Albumin (3.0-4.8) g/dL Globulin gm/dL Albumin/Globulin Ratio (1.1-1.8) Triglycerides (35-160) mg/dL Cholesterol (130-200) mg/dL LDL Cholesterol Direct (0-129) mg/dL HDL Cholesterol (29-60) mg/dL Lipase (23-300) U/L TSH 3rd Generation (0.46-4.68) mIU/mL Blood Type Antibody Screen BBK History Checked Laboratory Results - last 24 hr 07/09/18 07/09/18 07/09/18 13:05 13:05 13:05 WBC 5.8 RBC 4.32 Hgb 12.5 Hct 38.3 MCV 88.7 MCH 28.9 MCHC 32.6 RDW 13.1 Plt Count 167 MPV 11.2 H Neut % (Auto) 50.1 Lymph % (Auto) 37.2 H [place] % (Auto) 5.7 Eos % (Auto) 6.7 H Baso % (Auto) 0.3 Lymph # (Auto) 2.2 [place] # (Auto) 0.3 Eos # (Auto) 0.4 Baso # (Auto) 0.02 Absolute Neuts (auto) 2.93 PT 12.7 H INR 1.12 APTT 32.9 Sodium 138 Potassium 4.0 Chloride 105 Carbon Dioxide 25 Anion Gap 12 BUN 8 Creatinine 0.5 L Est GFR ( Amer) > 60 Est GFR (Non-Af Amer) > 60 POC Glucose (mg/dL) Random Glucose 276 H Hemoglobin A1c Calcium 10.5 Total Bilirubin 0.4 AST 37 H ALT 27 Alkaline Phosphatase 121 Troponin I < 0.01 Total Protein 7.2 Albumin 4.0 Globulin 3.2 Albumin/Globulin Ratio 1.3 Triglycerides 263 H Cholesterol 153 LDL Cholesterol Direct 95 HDL Cholesterol 37 Lipase TSH 3rd Generation Blood Type Antibody Screen BBK History Checked 07/09/18 07/09/18 07/09/18 13:05 13:05 13:05 WBC RBC Hgb Hct MCV MCH MCHC RDW Plt Count MPV Neut % (Auto) Lymph % (Auto) [place] % (Auto) Eos % (Auto) Baso % (Auto) Lymph # (Auto) [place] # (Auto) Eos # (Auto) Baso # (Auto) Absolute Neuts (auto) PT INR APTT Sodium Potassium Chloride Carbon Dioxide Anion Gap BUN Creatinine Est GFR ( Amer) Est GFR (Non-Af Amer) POC Glucose (mg/dL) Random Glucose Hemoglobin A1c 8.8 H Calcium Total Bilirubin AST ALT Alkaline Phosphatase Troponin I Total Protein Albumin Globulin Albumin/Globulin Ratio Triglycerides Cholesterol LDL Cholesterol Direct HDL Cholesterol Lipase 165 TSH 3rd Generation Blood Type O POSITIVE Antibody Screen Negative BBK History Checked Patient has bt 07/09/18 07/09/18 07/10/18 13:58 21:29 06:00 WBC RBC Hgb Hct MCV MCH MCHC RDW Plt Count MPV Neut % (Auto) Lymph % (Auto) [place] % (Auto) Eos % (Auto) Baso % (Auto) Lymph # (Auto) [place] # (Auto) Eos # (Auto) Baso # (Auto) Absolute Neuts (auto) PT INR APTT Sodium 140 Potassium 4.1 Chloride 109 H Carbon Dioxide 25 Anion Gap 10 BUN 9 Creatinine 0.5 L Est GFR ( Amer) > 60 Est GFR (Non-Af Amer) > 60 POC Glucose (mg/dL) 225 H 145 H Random Glucose 137 H Hemoglobin A1c Calcium 9.9 Total Bilirubin 0.4 AST 38 H ALT 29 Alkaline Phosphatase 99 Troponin I Total Protein 6.8 Albumin 3.7 Globulin 3.1 Albumin/Globulin Ratio 1.2 Triglycerides 218 H Cholesterol 156 LDL Cholesterol Direct 95 HDL Cholesterol 33 Lipase TSH 3rd Generation Blood Type Antibody Screen BBK History Checked 07/10/18 07/10/18 06:00 06:00 WBC 7.0 D RBC 4.38 Hgb 12.5 Hct 39.0 MCV 89.0 MCH 28.5 MCHC 32.1 RDW 13.4 Plt Count 177 MPV 11.2 H Neut % (Auto) 50.4 Lymph % (Auto) 37.7 H [place] % (Auto) 5.0 Eos % (Auto) 6.3 H Baso % (Auto) 0.6 Lymph # (Auto) 2.6 [place] # (Auto) 0.4 Eos # (Auto) 0.4 Baso # (Auto) 0.04 Absolute Neuts (auto) 3.50 PT INR APTT Sodium Potassium Chloride Carbon Dioxide Anion Gap BUN Creatinine Est GFR ( Amer) Est GFR (Non-Af Amer) POC Glucose (mg/dL) Random Glucose Hemoglobin A1c Calcium Total Bilirubin AST ALT Alkaline Phosphatase Troponin I Total Protein Albumin Globulin Albumin/Globulin Ratio Triglycerides Cholesterol LDL Cholesterol Direct HDL Cholesterol Lipase TSH 3rd Generation 3.26 Blood Type Antibody Screen BBK History Checked Radiology Impressions: Radiology Impressions Chest X-Ray 07/09/18 13:03 IMPRESSION: No active disease. Head CT 07/09/18 13:03 IMPRESSION: Normal CT of the Head. Head CT 07/10/18 06:00 IMPRESSION: No acute intracranial pathology identified. Preliminary impression was provided by [facility]. EKG/Cardiology Studies: Cardiology / EKG Studies 07/09/18 13:03 ELECTROCARDIOGRAM Stat Comment: Reason For Exam: tia Fingerstick Blood Sugar Results: 145 Critical Care Progress Note - Nutrition Nutrition: Nutrition Category Date Time Status Heart Healthy Diet [DIET] Diets 07/09/18 Dinner Active Assessment/Plan - Assessment and Plan (Free Text) Assessment: Pt is a 58 yo F with pmhx of TIA (30 yrs ago), HTN, asthma, HLD, DM, COPD, and hypothyroidism who presents for L sided face and body heaviness and numbness that began at 10AM this morning when she was trying to get up out of bed, associated with headache, dizziness described as lightheadedness, and blurry vi patrick. She now admits that she feels better than yesterday and no longer feels the weakness or L sided numbness/heaviness. Plan: Ischemic Stroke s/p tPA @ 2:17pm on 07/09/18: - Head CT 07/09 shows: Normal head CT - Repeat CT 07/10 shows No acute intracranial pathology - Will continue neurochecks q1 and BP monitoring as per protocol - Tight SBP control - NIHSS Stroke scale at this time is: 0 - Echo - Will restart ASA once the 24 hour period of tPA is over - A1c - Lipid panel - B12, folate, Homocystiene - TSH Cardio: - Cont home cozaar, with holding parameters - As above ensure tight SBP control - Ensure MAP >65 Pulm: - Duoneb PRN - Ensure O2 sat >92 GI: - Protonix for prophylaxis - Passed swallow eval Endo: - Ensure euglycemia and will cont to monitor BS overnight Nephro: - Maintain euvolemia PPx: GI: Protonix DVT: On tPA. Case seen and discussed with Dr. Marisel Rubio, PGY-1 <William Joiner - Last Filed: 07/10/18 12:51> CCU Objective - Vital Signs / Intake & Output Vital Signs (Last 4 hours): Vital Signs Pulse Resp BP Pulse Ox 07/10/18 12:38 70 22 129/57 L 96 07/10/18 12:31 71 24 142/69 95 07/10/18 12:30 73 43 H 96 07/10/18 11:38 67 16 122/55 L 97 07/10/18 11:10 61 07/10/18 11:00 67 21 122/55 L 07/10/18 10:38 71 17 163/89 H 95 07/10/18 10:00 70 20 163/89 H 95 07/10/18 09:44 71 170/80 H 07/10/18 09:28 69 17 170/80 H 93 L 07/10/18 09:27 65 36 H 173/72 H 94 L 07/10/18 09:26 67 13 176/82 H 93 L 07/10/18 09:00 67 19 163/88 H 07/10/18 08:52 75 17 163/88 H 93 L Intake and Output (Last 8hrs): Intake & Output 0307/10/18 07/10/18 22:59 06:59 14:59 Intake Total 800 Output Total 1200 Balance -400 Weight 199 lb 9.6 oz Intake: IV 600 Right Forearm 600 Oral 200 Output: Urine 1200 Urine, Voided 1200 Other: Voiding Method Bedpan - Medications Active Medications: Active Medications Generic Name Dose Route Start Last Admin Trade Name Freq PRN Reason Stop Dose Admin Albuterol/Ipratropium 3 ml 07/09/18 16:46 Duoneb 3 Mg/0.5 Mg (3 Ml) Ud IH Q2H PRN Shortness of Breath Atorvastatin Calcium 10 mg 07/10/18 10:00 07/10/18 09:44 Lipitor PO 10 mg DAILY [facility] Administration Insulin Human Lispro 0 units 07/09/18 22:00 07/10/18 08:07 Humalog High SC Not Given ACHS [facility] Protocol Losartan Potassium 50 mg 07/10/18 10:15 Cozaar PO DAILY [facility] Metformin HCl 500 mg 07/09/18 19:30 07/10/18 09:44 Glucophage PO 500 mg BID [facility] Administration Ondansetron HCl 4 mg 07/10/18 10:37 07/10/18 10:44 Zofran Inj IVP 4 mg Q6H PRN Administration Nausea/Vomiting Pantoprazole Sodium 40 mg 07/10/18 10:00 07/10/18 09:43 Protonix Inj IVP 40 mg DAILY [facility] Administration - Patient Studies Lab Studies: Lab Studies 07/10/18 07/10/18 07/10/18 Range/Units 06:00 06:00 06:00 WBC 7.0 D (4.5-11.0) 10^3/uL RBC 4.38 (3.5-6.1) 10^6/uL Hgb 12.5 (12.0-16.0) g/dL Hct 39.0 (36.0-48.0) % MCV 89.0 (80.0-105.0) fl MCH 28.5 (25.0-35.0) pg MCHC 32.1 (31.0-37.0) g/dl RDW 13.4 (11.5-14.5) % Plt Count 177 (120.0-450.0) 10^3/uL MPV 11.2 H (7.0-11.0) fl Neut % (Auto) 50.4 (50.0-68.0) % Lymph % (Auto) 37.7 H (22.0-35.0) % [place] % (Auto) 5.0 (1.0-6.0) % Eos % (Auto) 6.3 H (1.5-5.0) % Baso % (Auto) 0.6 (0.0-3.0) % Lymph # (Auto) 2.6 (1.2-3.4) [place] # (Auto) 0.4 (0.1-0.6) Eos # (Auto) 0.4 (0.0-0.7) Baso # (Auto) 0.04 (0.0-2.0) K/mm3 Absolute Neuts (auto) 3.50 (1.4-6.5) PT (9.4-12.5) SECONDS INR APTT (26.9-38.3) Seconds Sodium 140 (132-148) mmol/L Potassium 4.1 (3.6-5.0) mmol/L Chloride 109 H (98-107) mmol/L Carbon Dioxide 25 (21-33) mmol/L Anion Gap 10 (10-20) BUN 9 (7-21) mg/dL Creatinine 0.5 L (0.7-1.2) mg/dl Est GFR ( Amer) > 60 Est GFR (Non-Af Amer) > 60 POC Glucose (mg/dL) (65-110) mg/dL Random Glucose 137 H (70-110) mg/dL Hemoglobin A1c (4.2-6.5) % Calcium 9.9 (8.4-10.5) mg/dL Total Bilirubin 0.4 (0.2-1.3) mg/dL AST 38 H (14-36) U/L ALT 29 (7-56) U/L Alkaline Phosphatase 99 (38-126) U/L Troponin I ng/mL Total Protein 6.8 (5.8-8.3) g/dL Albumin 3.7 (3.0-4.8) g/dL Globulin 3.1 gm/dL Albumin/Globulin Ratio 1.2 (1.1-1.8) Triglycerides 218 H (35-160) mg/dL Cholesterol 156 (130-200) mg/dL LDL Cholesterol Direct 95 (0-129) mg/dL HDL Cholesterol 33 (29-60) mg/dL Lipase (23-300) U/L TSH 3rd Generation 3.26 (0.46-4.68) mIU/mL Blood Type Antibody Screen BBK History Checked 07/09/18 07/09/18 07/09/18 Range/Units 21:29 13:58 13:05 WBC (4.5-11.0) 10^3/uL RBC (3.5-6.1) 10^6/uL Hgb (12.0-16.0) g/dL Hct (36.0-48.0) % MCV (80.0-105.0) fl MCH (25.0-35.0) pg MCHC (31.0-37.0) g/dl RDW (11.5-14.5) % Plt Count (120.0-450.0) 10^3/uL MPV (7.0-11.0) fl Neut % (Auto) (50.0-68.0) % Lymph % (Auto) (22.0-35.0) % [place] % (Auto) (1.0-6.0) % Eos % (Auto) (1.5-5.0) % Baso % (Auto) (0.0-3.0) % Lymph # (Auto) (1.2-3.4) [place] # (Auto) (0.1-0.6) Eos # (Auto) (0.0-0.7) Baso # (Auto) (0.0-2.0) K/mm3 Absolute Neuts (auto) (1.4-6.5) PT (9.4-12.5) SECONDS INR APTT (26.9-38.3) Seconds Sodium (132-148) mmol/L Potassium (3.6-5.0) mmol/L Chloride (98-107) mmol/L Carbon Dioxide (21-33) mmol/L Anion Gap (10-20) BUN (7-21) mg/dL Creatinine (0.7-1.2) mg/dl Est GFR ( Amer) Est GFR (Non-Af Amer) POC Glucose (mg/dL) 145 H 225 H (65-110) mg/dL Random Glucose (70-110) mg/dL Hemoglobin A1c (4.2-6.5) % Calcium (8.4-10.5) mg/dL Total Bilirubin (0.2-1.3) mg/dL AST (14-36) U/L ALT (7-56) U/L Alkaline Phosphatase (38-126) U/L Troponin I ng/mL Total Protein (5.8-8.3) g/dL Albumin (3.0-4.8) g/dL Globulin gm/dL Albumin/Globulin Ratio (1.1-1.8) Triglycerides (35-160) mg/dL Cholesterol (130-200) mg/dL LDL Cholesterol Direct (0-129) mg/dL HDL Cholesterol (29-60) mg/dL Lipase 165 (23-300) U/L TSH 3rd Generation (0.46-4.68) mIU/mL Blood Type Antibody Screen BBK History Checked 07/09/18 07/09/18 07/09/18 Range/Units 13:05 13:05 13:05 WBC (4.5-11.0) 10^3/uL RBC (3.5-6.1) 10^6/uL Hgb (12.0-16.0) g/dL Hct (36.0-48.0) % MCV (80.0-105.0) fl MCH (25.0-35.0) pg MCHC (31.0-37.0) g/dl RDW (11.5-14.5) % Plt Count (120.0-450.0) 10^3/uL MPV (7.0-11.0) fl Neut % (Auto) (50.0-68.0) % Lymph % (Auto) (22.0-35.0) % [place] % (Auto) (1.0-6.0) % Eos % (Auto) (1.5-5.0) % Baso % (Auto) (0.0-3.0) % Lymph # (Auto) (1.2-3.4) [place] # (Auto) (0.1-0.6) Eos # (Auto) (0.0-0.7) Baso # (Auto) (0.0-2.0) K/mm3 Absolute Neuts (auto) (1.4-6.5) PT (9.4-12.5) SECONDS INR APTT (26.9-38.3) Seconds Sodium 138 (132-148) mmol/L Potassium 4.0 (3.6-5.0) mmol/L Chloride 105 (98-107) mmol/L Carbon Dioxide 25 (21-33) mmol/L Anion Gap 12 (10-20) BUN 8 (7-21) mg/dL Creatinine 0.5 L (0.7-1.2) mg/dl Est GFR ( Amer) > 60 Est GFR (Non-Af Amer) > 60 POC Glucose (mg/dL) (65-110) mg/dL Random Glucose 276 H (70-110) mg/dL Hemoglobin A1c 8.8 H (4.2-6.5) % Calcium 10.5 (8.4-10.5) mg/dL Total Bilirubin 0.4 (0.2-1.3) mg/dL AST 37 H (14-36) U/L ALT 27 (7-56) U/L Alkaline Phosphatase 121 (38-126) U/L Troponin I < 0.01 ng/mL Total Protein 7.2 (5.8-8.3) g/dL Albumin 4.0 (3.0-4.8) g/dL Globulin 3.2 gm/dL Albumin/Globulin Ratio 1.3 (1.1-1.8) Triglycerides 263 H (35-160) mg/dL Cholesterol 153 (130-200) mg/dL LDL Cholesterol Direct 95 (0-129) mg/dL HDL Cholesterol 37 (29-60) mg/dL Lipase (23-300) U/L TSH 3rd Generation (0.46-4.68) mIU/mL Blood Type O POSITIVE Antibody Screen Negative BBK History Checked Patient has bt 07/09/18 07/09/18 Range/Units 13:05 13:05 WBC 5.8 (4.5-11.0) 10^3/uL RBC 4.32 (3.5-6.1) 10^6/uL Hgb 12.5 (12.0-16.0) g/dL Hct 38.3 (36.0-48.0) % MCV 88.7 (80.0-105.0) fl MCH 28.9 (25.0-35.0) pg MCHC 32.6 (31.0-37.0) g/dl RDW 13.1 (11.5-14.5) % Plt Count 167 (120.0-450.0) 10^3/uL MPV 11.2 H (7.0-11.0) fl Neut % (Auto) 50.1 (50.0-68.0) % Lymph % (Auto) 37.2 H (22.0-35.0) % [place] % (Auto) 5.7 (1.0-6.0) % Eos % (Auto) 6.7 H (1.5-5.0) % Baso % (Auto) 0.3 (0.0-3.0) % Lymph # (Auto) 2.2 (1.2-3.4) [place] # (Auto) 0.3 (0.1-0.6) Eos # (Auto) 0.4 (0.0-0.7) Baso # (Auto) 0.02 (0.0-2.0) K/mm3 Absolute Neuts (auto) 2.93 (1.4-6.5) PT 12.7 H (9.4-12.5) SECONDS INR 1.12 APTT 32.9 (26.9-38.3) Seconds Sodium (132-148) mmol/L Potassium (3.6-5.0) mmol/L Chloride (98-107) mmol/L Carbon Dioxide (21-33) mmol/L Anion Gap (10-20) BUN (7-21) mg/dL Creatinine (0.7-1.2) mg/dl Est GFR ( Amer) Est GFR (Non-Af Amer) POC Glucose (mg/dL) (65-110) mg/dL Random Glucose (70-110) mg/dL Hemoglobin A1c (4.2-6.5) % Calcium (8.4-10.5) mg/dL Total Bilirubin (0.2-1.3) mg/dL AST (14-36) U/L ALT (7-56) U/L Alkaline Phosphatase (38-126) U/L Troponin I ng/mL Total Protein (5.8-8.3) g/dL Albumin (3.0-4.8) g/dL Globulin gm/dL Albumin/Globulin Ratio (1.1-1.8) Triglycerides (35-160) mg/dL Cholesterol (130-200) mg/dL LDL Cholesterol Direct (0-129) mg/dL HDL Cholesterol (29-60) mg/dL Lipase (23-300) U/L TSH 3rd Generation (0.46-4.68) mIU/mL Blood Type Antibody Screen BBK History Checked Laboratory Results - last 24 hr 07/09/18 07/09/18 07/09/18 13:05 13:05 13:05 WBC 5.8 RBC 4.32 Hgb 12.5 Hct 38.3 MCV 88.7 MCH 28.9 MCHC 32.6 RDW 13.1 Plt Count 167 MPV 11.2 H Neut % (Auto) 50.1 Lymph % (Auto) 37.2 H [place] % (Auto) 5.7 Eos % (Auto) 6.7 H Baso % (Auto) 0.3 Lymph # (Auto) 2.2 [place] # (Auto) 0.3 Eos # (Auto) 0.4 Baso # (Auto) 0.02 Absolute Neuts (auto) 2.93 PT 12.7 H INR 1.12 APTT 32.9 Sodium 138 Potassium 4.0 Chloride 105 Carbon Dioxide 25 Anion Gap 12 BUN 8 Creatinine 0.5 L Est GFR ( Amer) > 60 Est GFR (Non-Af Amer) > 60 POC Glucose (mg/dL) Random Glucose 276 H Hemoglobin A1c Calcium 10.5 Total Bilirubin 0.4 AST 37 H ALT 27 Alkaline Phosphatase 121 Troponin I < 0.01 Total Protein 7.2 Albumin 4.0 Globulin 3.2 Albumin/Globulin Ratio 1.3 Triglycerides 263 H Cholesterol 153 LDL Cholesterol Direct 95 HDL Cholesterol 37 Lipase TSH 3rd Generation Blood Type Antibody Screen BBK History Checked 07/09/18 07/09/18 07/09/18 13:05 13:05 13:05 WBC RBC Hgb Hct MCV MCH MCHC RDW Plt Count MPV Neut % (Auto) Lymph % (Auto) [place] % (Auto) Eos % (Auto) Baso % (Auto) Lymph # (Auto) [place] # (Auto) Eos # (Auto) Baso # (Auto) Absolute Neuts (auto) PT INR APTT Sodium Potassium Chloride Carbon Dioxide Anion Gap BUN Creatinine Est GFR ( Amer) Est GFR (Non-Af Amer) POC Glucose (mg/dL) Random Glucose Hemoglobin A1c 8.8 H Calcium Total Bilirubin AST ALT Alkaline Phosphatase Troponin I Total Protein Albumin Globulin Albumin/Globulin Ratio Triglycerides Cholesterol LDL Cholesterol Direct HDL Cholesterol Lipase 165 TSH 3rd Generation Blood Type O POSITIVE Antibody Screen Negative BBK History Checked Patient has bt 07/09/18 07/09/18 07/10/18 13:58 21:29 06:00 WBC RBC Hgb Hct MCV MCH MCHC RDW Plt Count MPV Neut % (Auto) Lymph % (Auto) [place] % (Auto) Eos % (Auto) Baso % (Auto) Lymph # (Auto) [place] # (Auto) Eos # (Auto) Baso # (Auto) Absolute Neuts (auto) PT INR APTT Sodium 140 Potassium 4.1 Chloride 109 H Carbon Dioxide 25 Anion Gap 10 BUN 9 Creatinine 0.5 L Est GFR ( Amer) > 60 Est GFR (Non-Af Amer) > 60 POC Glucose (mg/dL) 225 H 145 H Random Glucose 137 H Hemoglobin A1c Calcium 9.9 Total Bilirubin 0.4 AST 38 H ALT 29 Alkaline Phosphatase 99 Troponin I Total Protein 6.8 Albumin 3.7 Globulin 3.1 Albumin/Globulin Ratio 1.2 Triglycerides 218 H Cholesterol 156 LDL Cholesterol Direct 95 HDL Cholesterol 33 Lipase TSH 3rd Generation Blood Type Antibody Screen BBK History Checked 07/10/18 07/10/18 06:00 06:00 WBC 7.0 D RBC 4.38 Hgb 12.5 Hct 39.0 MCV 89.0 MCH 28.5 MCHC 32.1 RDW 13.4 Plt Count 177 MPV 11.2 H Neut % (Auto) 50.4 Lymph % (Auto) 37.7 H [place] % (Auto) 5.0 Eos % (Auto) 6.3 H Baso % (Auto) 0.6 Lymph # (Auto) 2.6 [place] # (Auto) 0.4 Eos # (Auto) 0.4 Baso # (Auto) 0.04 Absolute Neuts (auto) 3.50 PT INR APTT Sodium Potassium Chloride Carbon Dioxide Anion Gap BUN Creatinine Est GFR ( Amer) Est GFR (Non-Af Amer) POC Glucose (mg/dL) Random Glucose Hemoglobin A1c Calcium Total Bilirubin AST ALT Alkaline Phosphatase Troponin I Total Protein Albumin Globulin Albumin/Globulin Ratio Triglycerides Cholesterol LDL Cholesterol Direct HDL Cholesterol Lipase TSH 3rd Generation 3.26 Blood Type Antibody Screen BBK History Checked Radiology Impressions: Radiology Impressions Chest X-Ray 07/09/18 13:03 IMPRESSION: No active disease. Head CT 07/09/18 13:03 IMPRESSION: Normal CT of the Head. Head CT 07/10/18 06:00 IMPRESSION: No acute intracranial pathology identified. Preliminary impression was provided by HEAVENLY Jones. EKG/Cardiology Studies: Cardiology / EKG Studies 07/09/18 13:03 ELECTROCARDIOGRAM Stat Comment: Reason For Exam: tia Critical Care Progress Note - Nutrition Nutrition: Nutrition Category Date Time Status Heart Healthy Diet [DIET] Diets 07/09/18 Dinner Active Assessment/Plan - Assessment and Plan (Free Text) Plan: Patient seen and examined on rounds, with resident, agree with note with following additions/exceptions: Patient is 58 yo F with pmhx of TIA (30 yrs ago), HTN, asthma, HLD, DM, COPD, and hypothyroidism who presents for L sided face and body heaviness and numbness that began at 10AM yesterday, given tPA in the ER, after consultation with Neurology. Initial CTH neg. Currently afebrile, HD stable, comfortable in NAD, doing well. Motor strength 5/5 all ext, sensory intact, NIHSS 0 Repeat CTH negative ECHO ASA, Statin q4hr Neuro check follow up neurology GI ppx DVT ppx, HSQ Transfer to tele
--- NOTE | 2018-07-10 13:53 | PN ---
DATE: 07/10/2018 SUBJECTIVE: The patient is 58-year-old, seen and examined. Yesterday she came with intermittent headache, left-sided numbness. She was given TPA. She states she has almost complete resolution of her numbness doing well. PHYSICAL EXAMINATION: VITAL SIGNS: She is afebrile. Pulse 71, respiration 17 and blood pressure 163/89. LUNGS: Bilateral fair airflow. No rhonchi or crackle. HEART: S1 and S2, audible. ABDOMEN: Soft and nontender. no hepatosplenomegaly. NEUROLOGIC: She is awake, alert and able to communicate. LABORATORY DATA: WBC 7.0, hemoglobin 12, hematocrit 39 and platelet 177. Sodium 140, potassium 4.1, chloride 109, CO2 of 25, BUN 9, creatinine 0.5 and blood sugar 137. ASSESSMENT: 1. Left-sided numbness and heaviness with status post tissue plasminogen activator with complete resolution of symptoms. 2. Non-insulin dependant diabetes. 3. Hypertension. 4. History of transient ischemic attack 30 years ago. 5. Morbid obesity. PLAN: The patient will be transferred to telemetry. Encourage ambulation. Monitor blood sugar. Continue DVT prophylaxis. Continue GI prophylaxis. Lyssa Fernandes MD
--- NOTE | 2018-07-10 15:49 | CP.PCM.CON ---
History of Present Illness - History of Present Illness History of Present Illness: Neurology Consultation Note: Consult requested by Dr. Fernandes. Mrs. Champion is a 58-year-old woman with a past medical history of HTN, HLD, DM, who developed left face, arm and leg numbness of sudden onset yesterday. She had an NIHSS of 2, CT scan of the head did not show any acute findings. She was a candidate for IV tPA since she was within the 4.5 hour time window. Risks and benefits of tPA were explained and the patient agreed to being treated. Today, in the ICU, the patient states that she is feeling much better, and only feels slight numbness on the left side. Review of Systems - Constitutional Constitutional: As Per HPI - EENT Eyes: absent: As Per HPI, Blind Spots, Blurred Vision, Change in Vision, Decreased Night Vision, Diplopia, Discharge, Dry Eye, Exophthalmos, Floaters, Irritation, Itchy Eyes, Loss of Peripheral Vision, Pain, Photophobia, Requires Corrective Lenses, Sees Flashes, Spots in Vision, Tunnel Vision, Other Visual Disturbances, Loss of Vision, Other Ears: absent: As Per HPI, Decreased Hearing, Ear Discharge, Ear Pain, Tinnitus, Abnormal Hearing, Disequilibrium, Dizziness, Other Nose/Mouth/Throat: absent: As Per HPI, Epistaxis, Nasal Congestion, Nasal Discharge, Nasal Obstruction, Nasal Trauma, Nose Pain, Post Nasal Drip, Sinus Pain, Sinus Pressure, Bleeding Gums, Change in Voice, Dental Pain, Dry Mouth, Dysphagia, Halitosis, Hoarsness, Lip Swelling, Mouth Lesions, Mouth Pain, Odynophagia, Sore Throat, Throat Swelling, Tongue Swelling, Facial Pain, Neck Pain, Neck Mass, Other - Cardiovascular Cardiovascular: absent: As Per HPI, Acrocyanosis, Chest Pain, Chest Pain at Rest, Chest Pain with Activity, Claudication, Diaphoresis, Dyspnea, Dyspnea on Exertion, Edema, Irregular Heart Rhythm, Pain Radiating to Arm/Neck/Jaw, Leg Edema, Leg Ulcers, Lightheadedness, Orthopnea, Palpitations, Paroxysmal Nocturnal Dyspnea, Pedal Edema, Radiating Pain, Rapid Heart Rate, Slow Heart Rate, Syncope, Other - Respiratory Respiratory: absent: As Per HPI, Cough, Dyspnea, Hemoptysis, Dyspnea on Exertion, Wheezing, Snoring, Stridor, Pain on Inspiration, Chest Congestion, Excessive Mucous Production, Change in Mucous Color, Pain with Coughing, Other - Gastrointestinal Gastrointestinal: absent: As Per HPI, Abdominal Pain, Belching, Bloating, Change in Bowel Habits, Change in Stool Character, Coffee Ground Emesis, Constipation, Cramping, Diarrhea, Dyspepsia, Dysphagia, Early Satiety, Excessive Flatus, Fecal Incontinence, Heartburn, Hematemesis, Hematochezia, Loose Stools, Melena, Nausea, Odynophagia, Temesmus, Vomiting, Other - Musculoskeletal Musculoskeletal: absent: As Per HPI, Abnormal Gait, Arthralgias, Atrophy, Back Pain, Deformity, Joint Swelling, Limited Range of Motion, Loss of Height, Muscle Cramps, Muscle Weakness, Myalgias, Neck Pain, Numbness, Radiating Pain into Limb, Stiffness, Tingling, Other - Integumentary Integumentary: absent: As Per HPI, Acne, Alopecia, Bleeding Lesions, Change in Hair, Change in Nails, Change in Pigmentation, Changing Lesions, Dry Skin, Erythema, Furuncle, Hirsutism, Lesions, New Lesions, Non-Healing Lesions, Photosensitivity, Pruritus, Rash, Skin Pain, Skin Ulcer, Sores, Striae, Swelling, Unusual Bruising, Wounds, Jaundice, Other - Neurological Neurological: As Per HPI - Psychiatric Psychiatric: absent: As Per HPI, Abnormal Sleep Pattern, Anhedonia, Anxiety, Auditory Hallucinations, Behavioral Changes, Change in Appetite, Change in Libido, Confusion, Depression, Difficulty Concentrating, Hallucinations, Antwan icidal Ideation, Hopelessness, Irritability, Memory Loss, Mood Swings, Panic Attacks, Paranoia, Suicidal Ideation, Visual Hallucinations, Tactile Hallucinations, Other - Endocrine Endocrine: absent: As Per HPI, Change in Body Appearance, Change in Libido, Cold Intolorance, Deepening of Voice, Excessive Sweating, Fatigue, Flushing, Heat Intolorance, Increase in Ring/Shoe/Hat Size, Palpitations, Polydipsia, Polyphagia, Polyuria, Other - Hematologic/Lymphatic Hematologic: absent: As Per HPI, Easy Bleeding, Easy Bruising, Lymphadenopathy, Other Past Patient History - Infectious Disease Hx of Infectious Diseases: None - Tetanus Immunizations Tetanus Immunization: Unknown - Past Medical History & Family History Past Medical History?: Yes - Past Social History Smoking Status: Former Smoker - CARDIAC Hx Hypercholesterolemia: Yes Hx Hypertension: Yes - PULMONARY Hx Chronic Obstructive Pulmonary Disease (COPD): Yes - NEUROLOGICAL Hx Neurological Disorder: Yes HX Cerebrovascular Accident: Yes Hx Dizziness: Yes Hx Transient Ischemic Attacks (TIA): Yes (30 yrs ago) - HEENT Hx HEENT Problems: Yes Hx Deafness: Yes (L [place]) - RENAL Hx Chronic Kidney Disease: Yes Hx Kidney Stones: Yes - ENDOCRINE/METABOLIC Hx Diabetes Mellitus Type 2: Yes Hx Hypothyroidism: Yes - HEMATOLOGICAL/ONCOLOGICAL Hx Blood Disorders: No - INTEGUMENTARY Hx Dermatological Problems: No - MUSCULOSKELETAL/RHEUMATOLOGICAL Hx Falls: No - GASTROINTESTINAL Hx Gastrointestinal Disorders: No Hx Colostomy: No - GENITOURINARY/GYNECOLOGICAL Hx Genitourinary Disorders: No Hx Urinary Tract Infection: Yes Other/Comment: TUMMY TUCK,NUMEROUS ABORTIONS THAT SHE CANNOT REMEMBER HOW MANY. - PSYCHIATRIC Hx Psychophysiologic Disorder: No Hx Physical Abuse: No Hx Sexual Abuse: No Other/Comment: SMOKED CIGARETTES A TEENAGER - SURGICAL HISTORY Hx Cholecystectomy: Yes Hx Hysterectomy: Yes Other/Comment: BREAST IMPLANT REMOVAL AND AUGMENTATION DONE AFTER. - ANESTHESIA Hx Anesthesia: Yes Hx Anesthesia Reactions: No Hx Malignant Hyperthermia: No Meds Allergies/Adverse Reactions: Allergies Allergy/AdvReac Type Severity Reaction Status Date / Time apple Allergy SWELLING Verified 07/09/18 12:50 dennison Allergy SHORTNESS Verified 07/09/18 12:50 OF BREATH pear Allergy SWELLING Verified 07/09/18 12:50 - Medications Medications: Current Medications Albuterol/Ipratropium (Duoneb 3 Mg/0.5 Mg (3 Ml) Ud) 3 ml IH Q2H PRN PRN Reason: Shortness of Breath Atorvastatin Calcium (Lipitor) 10 mg PO DAILY [facility] Last Admin: 07/10/18 09:44 Dose: 10 mg Insulin Human Lispro (Humalog High) 0 units [facility]; Protocol Last Admin: 07/10/18 08:07 Dose: Not Given Losartan Potassium (Cozaar) 50 mg PO DAILY [facility] Metformin HCl (Glucophage) 500 mg PO BID [facility] Last Admin: 07/10/18 09:44 Dose: 500 mg Mupirocin (Bactroban Ointment) 1 gm NS BID [facility] Stop: 07/15/18 10:01 Ondansetron HCl (Zofran Inj) 4 mg IVP Q6H PRN PRN Reason: Nausea/Vomiting Last Admin: 07/10/18 10:44 Dose: 4 mg Pantoprazole Sodium (Protonix Inj) 40 mg IVP DAILY [facility] Last Admin: 07/10/18 09:43 Dose: 40 mg Physical Exam - Constitutional Appears: Well - Head Exam Head Exam: ATRAUMATIC, NORMAL INSPECTION, NORMOCEPHALIC - Eye Exam Eye Exam: EOMI, Normal appearance, PERRL Pupil Exam: NORMAL ACCOMODATION, PERRL - ENT Exam ENT Exam: Mucous Membranes Moist, Normal Exam - Neck Exam Neck exam: Positive for: Normal Inspection - Respiratory Exam Respiratory Exam: Clear to Auscultation Bilateral, NORMAL BREATHING PATTERN - Cardiovascular Exam Cardiovascular Exam: REGULAR RHYTHM, +S1, +S2 - GI/Abdominal Exam GI & Abdominal Exam: Normal Bowel Sounds, Soft. absent: Tenderness - Extremities Exam Extremities exam: Positive for: normal inspection - Back Exam Back exam: NORMAL INSPECTION - Neurological Exam Neurological exam: Alert, CN II-XII Intact, Normal Gait, Oriented x3, Reflexes Normal Additional comments: Slight left face and arm numbness. No other deficits, no pronator drift. NIHSS = 1 - Psychiatric Exam Psychiatric exam: Normal Affect, Normal Mood - Skin Skin Exam: Dry, Intact, Normal Color, Warm Results - Vital Signs Recent Vital Signs: Last Vital Signs Temp 98 F 07/10/18 04:00 Pulse 81 07/10/18 13:38 Resp 24 07/10/18 13:38 BP 148/67 07/10/18 13:38 Pulse Ox 96 07/10/18 12:38 - Labs Result Diagrams: 07/10/18 06:00 07/10/18 06:00 Labs: Laboratory Results - last 24 hr 07/09/18 07/09/18 07/10/18 13:05 21:29 06:00 WBC RBC Hgb Hct MCV MCH MCHC RDW Plt Count MPV Neut % (Auto) Lymph % (Auto) [place] % (Auto) Eos % (Auto) Baso % (Auto) Lymph # (Auto) [place] # (Auto) Eos # (Auto) Baso # (Auto) Absolute Neuts (auto) Sodium 140 Potassium 4.1 Chloride 109 H Carbon Dioxide 25 Anion Gap 10 BUN 9 Creatinine 0.5 L Est GFR ( Amer) > 60 Est GFR (Non-Af Amer) > 60 POC Glucose (mg/dL) 145 H Random Glucose 137 H Hemoglobin A1c 8.8 H Calcium 9.9 Total Bilirubin 0.4 AST 38 H ALT 29 Alkaline Phosphatase 99 Total Protein 6.8 Albumin 3.7 Globulin 3.1 Albumin/Globulin Ratio 1.2 Triglycerides 218 H Cholesterol 156 LDL Cholesterol Direct 95 HDL Cholesterol 33 TSH 3rd Generation 07/10/18 07/10/18 06:00 06:00 WBC 7.0 D RBC 4.38 Hgb 12.5 Hct 39.0 MCV 89.0 MCH 28.5 MCHC 32.1 RDW 13.4 Plt Count 177 MPV 11.2 H Neut % (Auto) 50.4 Lymph % (Auto) 37.7 H [place] % (Auto) 5.0 Eos % (Auto) 6.3 H Baso % (Auto) 0.6 Lymph # (Auto) 2.6 [place] # (Auto) 0.4 Eos # (Auto) 0.4 Baso # (Auto) 0.04 Absolute Neuts (auto) 3.50 Sodium Potassium Chloride Carbon Dioxide Anion Gap BUN Creatinine Est GFR ( Amer) Est GFR (Non-Af Amer) POC Glucose (mg/dL) Random Glucose Hemoglobin A1c Calcium Total Bilirubin AST ALT Alkaline Phosphatase Total Protein Albumin Globulin Albumin/Globulin Ratio Triglycerides Cholesterol LDL Cholesterol Direct HDL Cholesterol TSH 3rd Generation 3.26 Assessment & Plan (1) CVA (cerebral vascular accident) Assessment and Plan: Will continue post-tPA protocol as well as the followin. Transfer to telemetry 24 hours after tPA 2. MRI brain without contrast 3. Echocardiogram 4. Start aspirin 81 mg daily, at least 24 hours after tPA 5. Continue Lipitor 40 mg daily 6. PT/OT eval and treatment 7. Fluids with NS at 100 mL/hr 8. Case management consult Thank you for this consultation. Status: Acute
[2018-07-10] MEDS ORDERED: Mupirocin 2% Ointment 15 GM TUBE NS SCH (18:00)
[2018-07-11] MEDS: Insulin Lispro (HUMAlog) HIGH Coverage SC SCH ×3 (08:18→17:14)
[2018-07-11 08:22] LABS: BASO # 0.04 K/mm3 (0.0-2.0); BASO % 0.6 % (0.0-3.0); EOS # 0.4 (0.0-0.7); EOS % 5.7 % (1.5-5.0); HEMOGLOBIN 12.6 g/dL (12.0-16.0); LYMPH # 2.8 (1.2-3.4); LYMPH % 39.5 % (22.0-35.0); MEAN CELL VOLUME 89.4 fl (80.0-105.0); MEAN CORPUSCULAR HEMOGLOBIN 28.5 pg (25.0-35.0); MEAN CORPUSCULAR HGB CONC 31.9 g/dl (31.0-37.0); MEAN PLATELET VOLUME 10.5 fl (7.0-11.0); MONO # 0.3 (0.1-0.6); MONO % 4.7 % (1.0-6.0); RBC 4.42 10^6/uL (3.5-6.1); RED CELL DISTRIBUTION WIDTH 13.7 % (11.5-14.5)
[2018-07-11 08:35] LABS: ALB/GLOB RATIO 1.2 (1.1-1.8); ALBUMIN 3.8 g/dL (3.0-4.8); ALT/SGPT 24 U/L (7-56); AST/SGOT 34 U/L (14-36); BLOOD UREA NITROGEN 13 mg/dL (7-21); CALCIUM 10.4 mg/dL (8.4-10.5); GFR NON-AFRICAN AMERICAN > 60
--- NOTE | 2018-07-11 15:09 | US ---
PROCEDURE: Bilateral carotid artery duplex ultrasound HISTORY: Carotid stenosis PHYSICIAN(S): Nam Benson MD. TECHNIQUE: Duplex sonography and color-flow Doppler were used to evaluate the carotid bifurcations and limited segments of the vertebral arteries bilaterally. FINDINGS: There is mild smooth hypoechoic plaque noted at the carotid bifurcations bilaterally. The peak systolic velocity in the proximal right internal carotid artery is 102 cm/sec. This corresponds to a 20 to 39% proximal right ICA stenosis. Normal systolic velocities are noted in the proximal right external carotid artery. There is antegrade flow in the right vertebral artery. The peak systolic velocity in the proximal left internal carotid artery is 100 cm/sec. This corresponds to a 20 to 39% proximal left ICA stenosis. Normal systolic velocities are noted in the proximal left external carotid artery. There is antegrade flow in the left vertebral artery. IMPRESSION: 1. Bilateral 20-39% proximal ICA stenoses. 2. Antegrade flow in both vertebral arteries.
--- NOTE | 2018-07-11 15:32 | CP.PCM.PN ---
Subjective - Date & Time of Evaluation Date of Evaluation: 07/11/18 Time of Evaluation: 15:31 - Subjective Subjective: Neurology progress note: Mrs. Champion was seen and examined today at bedside. She states that she feels like the left side numbness is much better. There were no acute events overnight. Objective - Vital Signs/Intake and Output Vital Signs (last 24 hours): Temp Pulse Resp BP Pulse Ox 98.8 F 67 18 131/77 97 07/11/18 12:00 07/11/18 13:00 07/11/18 12:00 07/11/18 12:00 07/11/18 05:51 Intake and Output: 07/11/18 07/11/18 06:59 18:59 Intake Total 680 Balance 680 - Medications Medications: Current Medications Acetaminophen (Tylenol 325mg Tab) 650 mg PO Q6H PRN PRN Reason: Headache Last Admin: 07/10/18 17:52 Dose: 650 mg Albuterol/Ipratropium (Duoneb 3 Mg/0.5 Mg (3 Ml) Ud) 3 ml IH Q2H PRN PRN Reason: Shortness of Breath Atorvastatin Calcium (Lipitor) 10 mg PO DAILY [facility] Last Admin: 07/11/18 10:02 Dose: 10 mg Insulin Human Lispro (Humalog High) 0 units SC [facility]; Protocol Last Admin: 07/11/18 12:22 Dose: 1 unit Losartan Potassium (Cozaar) 50 mg PO DAILY [facility] Last Admin: 07/11/18 10:01 Dose: 50 mg Metformin HCl (Glucophage) 500 mg PO BID [facility] Last Admin: 07/11/18 10:02 Dose: 500 mg Ondansetron HCl (Zofran Inj) 4 mg IVP Q6H PRN PRN Reason: Nausea/Vomiting Last Admin: 07/10/18 10:44 Dose: 4 mg Pantoprazole Sodium (Protonix Inj) 40 mg IVP DAILY [facility] Last Admin: 07/11/18 10:00 Dose: 40 mg - Labs Labs: 07/11/18 07:00 07/11/18 07:00 PT 12.7 SECONDS (9.4-12.5) H 07/09/18 13:05 INR 1.12 07/09/18 13:05 APTT 32.9 Seconds (26.9-38.3) 07/09/18 13:05 - Neurological Exam Neurological Exam: Awake, CN II-XII Intact, Normal Gait, Oriented x3, Reflexes Normal Neuro motor strength exam: Left Upper Extremity: 5, Right Upper Extremity: 5, Left Lower Extremity: 5, Right Lower Extremity: 5 Additional comments: slight left side numbness as compared with the right. NIHSS = 1 Assessment and Plan (1) CVA (cerebral vascular accident) Assessment & Plan: MRI brain is recommended for further evaluation. Will start aspirin 81 mg daily for secondary stroke prevention. Continue medical management of risk factors. Status: Acute
--- NOTE | 2018-07-11 20:23 | PN ---
DATE: 07/11/2018 SUBJECTIVE: The patient is 58 years old seen and examined, doing well, lying in bed, seems to be comfortable only complains of left lower leg somewhat weakness. Otherwise, she is doing well, complained no headache. No nausea or vomiting. Eating and tolerating. PHYSICAL EXAMINATION: VITAL SIGNS: She is afebrile. Pulse 67, respirations 18, blood pressure 131/77. LUNGS: Bilateral fair airflow. No rhonchi or crackles. HEART: S1 and S2 audible. ABDOMEN: Soft, nontender. No rebound. No guarding. NEUROLOGIC: The patient is awake, alert, oriented, communicative. Moves all extremities. LABORATORY EXAMINATION: WBC 7, hemoglobin 12.6, hematocrit 39.5, platelets of 179. PT 12.7, INR of 1.12. Chemistry, sodium 141, potassium 4.4, chloride 108, CO2 , BUN 13, creatinine 0.6, blood sugar 180. ASSESSMENT AND PLAN: 1. Status post left-sided weakness, status post tissue plasminogen activator with almost complete resolution. 2. Insulin dependent diabetes. 3. Hypertension. 4. Hyperlipidemia. PLAN: The patient is clinically stable. No input noted and appreciated. I recommended for MRI that cannot be done today. So hopefully we will be able to do an MRI tomorrow morning, awaiting Carotid Doppler result. I have requested for physical therapy. Once cleared by neuro, will be discharged. She is advised to start taking Lipitor 20 mg daily, aspirin 81 daily. She should be on diabetes medication. The patient does admit not taking her medication regularly. She will follow with her PMD who is Dr. Alas. Lyssa Fernandes MD
[2018-07-12 06:52] LABS: BASO # 0.02 K/mm3 (0.0-2.0); BASO % 0.3 % (0.0-3.0); EOS # 0.4 (0.0-0.7); EOS % 6.7 % (1.5-5.0); HEMOGLOBIN 12.5 g/dL (12.0-16.0); LYMPH # 2.1 (1.2-3.4); LYMPH % 33.8 % (22.0-35.0); MEAN CELL VOLUME 88.6 fl (80.0-105.0); MEAN CORPUSCULAR HEMOGLOBIN 28.4 pg (25.0-35.0); MEAN CORPUSCULAR HGB CONC 32.1 g/dl (31.0-37.0); MEAN PLATELET VOLUME 10.7 fl (7.0-11.0); MONO # 0.4 (0.1-0.6); MONO % 6.9 % (1.0-6.0); RBC 4.4 10^6/uL (3.5-6.1); RED CELL DISTRIBUTION WIDTH 13.3 % (11.5-14.5); WHITE BLOOD COUNT 6.1 10^3/uL (4.5-11.0)
[2018-07-12 07:35] LABS: ALB/GLOB RATIO 1.2 (1.1-1.8); ALT/SGPT 32 U/L (7-56); AST/SGOT 42 U/L (14-36); BLOOD UREA NITROGEN 15 mg/dL (7-21); CALCIUM 10.8 mg/dL (8.4-10.5); GFR NON-AFRICAN AMERICAN > 60
[2018-07-12] MEDS: Insulin Lispro (HUMAlog) HIGH Coverage SC SCH (08:00)
[2018-07-12 08:14] VITALS: RESP 20; TEMP 97.6; O2SAT 96
--- NOTE | 2018-07-12 09:48 | MRI ---
Date of service: 07/11/2018 PROCEDURE: MRI BRAIN WITHOUT CONTRAST HISTORY: stroke COMPARISON: None available. TECHNIQUE: Multiplanar, multisequence MR images of the brain were obtained without intravenous contrast enhancement. FINDINGS: HEMORRHAGE: None DWI: No evidence of an acute or early subacute infarction. BRAIN PARENCHYMA: No mass effect or edema. No atrophy or chronic microvascular ischemic changes. VENTRICLES: Unremarkable. No hydrocephalus. CRANIUM: Unremarkable. ORBITS: Grossly unremarkable. PARANASAL SINUSES/MASTOIDS: Minimal mucosal thickening VASCULAR SYSTEM: Skull base flow voids intact. OTHER FINDINGS: The report concurs with the preliminary [facility] report IMPRESSION: Unremarkable non contrast enhanced MRI of the brain.
[2018-07-12 10:31] VITALS: BP 147/82; PULSE 62
--- NOTE | 2018-07-12 15:17 | CARD ---
APPROVED REPORT Date of service: 07/12/2018 EXAM: Two-dimensional and M-mode echocardiogram with Doppler and color Doppler. INDICATION STROKE..S/P TPA..R/O PFO/BUBBLE STUDY 2D DIMENSIONS Left Atrium (2D)4.2 (1.6-4.0cm)IVSd1.1 (0.7-1.1cm) LVDd4.6 (3.9-5.9cm)PWd1.2 (0.7-1.1cm) LVDs2.7 (2.5-4.0cm)FS (%) 41.9 % LVEF (%)73.0 (>50%) M-Mode DIMENSIONS Aortic Root3.10 (2.2-3.7cm)Aortic Cusp Exc.1.70 (1.5-2.0cm) Aortic Valve AoV Peak Ceylpvnu874.0cm/Lauryn Peak GR.11mmHg Mitral Valve MV E Nadoumof35.5cm/sMV A Mvxqcffj99.4cm/sE/A ratio0.9 TDI Lateral E' Peak V11.00cm/sMedial E' Peak V7.21cm/sE/Lateral E'6.8 E/Medial E'10.3 Pulmonary Valve PV Peak Mrusacqa85.4cm/sPV Peak Grad.3mmHg Tricuspid Valve TR Peak [id number]/sRAP [id number] Peak Gr.18mmHg [id number] LEFT VENTRICLE The left ventricle is normal size. There is normal left ventricular wall thickness. The left ventricular function is normal. The left ventricular ejection fraction is within the normal range. There is normal LV segmental wall motion. Transmitral Doppler flow pattern is Grade I-abnormal relaxation pattern. RIGHT VENTRICLE The right ventricle is normal size. There is normal right ventricular wall thickness. The right ventricular systolic function is normal. ATRIA The left atrium is borderline dilated. The right atrium size is normal. The interatrial septum is intact AORTIC VALVE The aortic valve is not well visualized. No aortic regurgitation is present. There is no aortic valvular stenosis. MITRAL VALVE The mitral valve is not well visualized. There is no mitral valve regurgitation noted. There is no mitral valve stenosis. TRICUSPID VALVE There is trace tricuspid regurgitation. PULMONIC VALVE The pulmonary valve is normal in structure. There is no pulmonic valvular regurgitation. GREAT VESSELS The aortic root is normal in size. The IVC is normal in size and collapses >50% with inspiration. <Conclusion> There is normal left ventricular wall thickness. The left ventricular function is normal. The left ventricular ejection fraction is within the normal range. There is normal LV segmental wall motion. Transmitral Doppler flow pattern is Grade I-abnormal relaxation pattern. The interatrial septum is intact
[2018-07-12] MEDS ORDERED: Apap-Butalbital-Caffeine 325-50-40mg Tab PO STA (18:12)
--- NOTE | 2018-07-12 22:39 | DS ---
HISTORY OF PRESENT ILLNESS: The patient is a 58-year-old, came to emergency room because of left-sided weakness and numbness with right facial tingling, so neurologist occasional babysitter was consulted and it was decided to give her tPA. The patient was admitted in ICU. She responded well. Her symptoms improved after some time. She was able to ambulate. She still has some subtle weakness in her left lower extremity. PHYSICAL EXAMINATION: GENERAL: She is awake, alert, oriented, and communicative. VITAL SIGNS: She is afebrile, pulse 62, respirations 20, and blood pressure 147/82. LUNGS: Bilateral fair airflow. No rhonchi or crackle. HEART: S1 and S2 audible. ABDOMEN: Soft and nontender. No rebound. No guarding. NEUROLOGIC: The patient is awake, alert, oriented, and communicative. LABORATORY DATA: WBC is 6.1, hemoglobin 12.5, hematocrit 39, and platelet 176. Chemistry; sodium 140, potassium 4.4, chloride 107, CO2 of 23, BUN 15, creatinine 0.6, and blood sugar of 120. MRI was done that is unremarkable. Echocardiogram, normal left ventricular thickness and left ventricular function is normal. ASSESSMENT AND PLAN: The patient is going to be discharged home today. She is advised to be compliant with her medications. She does admit she has not been taking her medications as she was supposed to. She should be taking omeprazole and atorvastatin 10 mg daily. She is on Tarceva, she is on metformin 1000 twice a day, and losartan 50 mg daily. She will follow with her PMD, Dr. Armstrong. Lyssa Fernandes MD
[2018-07-13] MEDS ORDERED: Pantoprazole 40 mg EC Tab PO SCH (07:30)
== END 2018-07-12 20:07 | disposition home or self-care (01) | DRG 63 ==
LOC: ED 12:39 → ERH 14:41 → CCU 17:54 → 2RSO 07-10 16:50 → 3RNO 07-11 22:54
PROVIDERS: ADMIT Internal Medicine; ATTEND Internal Medicine
DX: I63.9 Cerebral infarction, unspecified (principal); E78.00 Pure hypercholesterolemia, unspecified; R29.702 NIHSS score 2; J43.9 Emphysema, unspecified; E03.9 Hypothyroidism, unspecified; E66.01 Morbid (severe) obesity due to excess calories; E11.9 Type 2 diabetes mellitus without complications; I10 Essential (primary) hypertension; G89.29 Other chronic pain; Z68.35 Body mass index [BMI] 35.0-35.9, adult; Z91.14 Patient's other noncompliance with medication regimen; Z86.73 Personal history of transient ischemic attack (TIA), and cerebral infarction without residual deficits; Z79.4 Long term (current) use of insulin; Z82.3 Family history of stroke; Z87.891 Personal history of nicotine dependence

== ENCOUNTER 2018-10-04 15:09 | Emergency (ER) | payer MEDICARE, MEDICAID ==
[2018-10-04 15:23] VITALS: TEMP 98.3; BMI 33.6
[2018-10-04 16:00] VITALS: O2SAT 96
--- NOTE | 2018-10-04 16:00 | ED PDOC ---
Arrival/HPI - General Historian: Patient - History of Present Illness Narrative History of Present Illness (Text): 10/04/18 15:56 CC: left arm and leg pain HPI: 58 yo female w/ PMH of DM2, HTN, Hyperlipidemia comes to ED for evaluation of left arm and leg pain. Patient states the pain has been ongoing for over a week. Patient states she is having this pain for past week with associated episodes of weakness. Patient states that she has numbness but is able to feel all sensations in both upper and lower extremities equally. Patient states that she is been also feeling sick with fevers for past week withe this pain in her extremities. Patient states that she is having urinary complaints for which she went to see her pcp who prescribed her cephalexin. Patient states she took all of her meds as she is supposed to. Admits to left lower extremity pain, left upper extremity pain. Denies fevers, chills, chest pain, sob, n/v, constipation or diarrhea, and dysuria. Moving all extremities without difficulty. Able to discriminate between light touch and painful stimuli. Muscle strength testing 5/5 in both upper and lower extremities Time/Duration: > week Symptom Onset: Gradual Symptom Course: Unchanged <Kristian Ibarra - Last Filed: 10/04/18 17:06> <Mike Graf - Last Filed: 10/04/18 20:25> - General Chief Complaint: Weakness/Neurological Deficit Time Seen by Provider: 10/04/18 15:16 Past Medical History - Provider Review Nursing Documentation Reviewed: Yes Primary Care Provider: Fred Armstrong - Infectious Disease Hx of Infectious Diseases: None - Tetanus Immunization Tetanus Immunization: Unknown - Cardiac Hx Hypertension: Yes - Pulmonary Hx Chronic Obstructive Pulmonary Disease (COPD): Yes - Neurological Hx Neurological Disorder: Yes HX Cerebrovascular Accident: Yes Hx Dizziness: Yes Hx Transient Ischemic Attacks (TIA): Yes (30 yrs ago) - HEENT Hx HEENT Disorder: Yes Hx Deafness: Yes (L [place]) - Renal Hx Renal Disorder: Yes Hx Kidney Stones: Yes - Endocrine/Metabolic Hx Diabetes Mellitus Type 2: Yes Hx Hypothyroidism: Yes - Hematological/Oncological Hx Blood Disorders: No - Integumentary Hx Dermatological Disorder: No - Musculoskeletal/Rheumatological Hx Falls: No - Gastrointestinal Hx Gastrointestinal Disorders: No Hx Colostomy: No - Genitourinary/Gynecological Hx Genitourinary Disorders: No Hx Urinary Tract Infection: Yes Other/Comment: MADAN HORNER,NUMEROUS ABORTIONS THAT SHE CANNOT REMEMBER HOW MANY. - Psychiatric Hx Psychophysiologic Disorder: No Hx Physical Abuse: No Hx Sexual Abuse: No Hx Substance Use: No Other/Comment: SMOKED CIGARETTES A TEENAGER - Surgical History Hx Cholecystectomy: Yes Hx Hysterectomy: Yes Other/Comment: BREAST IMPLANT REMOVAL AND AUGMENTATION DONE AFTER. - Anesthesia Hx Anesthesia: Yes Hx Anesthesia Reactions: No Hx Malignant Hyperthermia: No - Suicidal Assessment Feels Threatened In Home Enviroment: No <Kristian Ibarra - Last Filed: 10/04/18 17:06> Family/Social History - Physician Review Nursing Documentation Reviewed: Yes Family/Social History: No Known Family HX Smoking Status: Former Smoker Hx Alcohol Use: No Hx Substance Use: No Hx Substance Use Treatment: No <Kristian Ibarra - Last Filed: 10/04/18 17:06> Allergies/Home Meds <Kristian Ibarra - Last Filed: 10/04/18 17:06> <Mike Graf - Last Filed: 10/04/18 20:25> Allergies/Adverse Reactions: Allergies apple Allergy (Verified 10/04/18 15:26) SWELLING dennison Allergy (Verified 10/04/18 15:26) SHORTNESS OF BREATH pear Allergy (Verified 10/04/18 15:26) SWELLING Home Medications: Home Meds Medication Instructions Recorded Confirmed Albuterol 0.083% [Albuterol 0.083% 0.09 % PO TID PRN #0 07/10/15 07/09/18 Inhal Jeannine (2.5 mg/3 ml) UD] Losartan [Cozaar] 50 mg PO DAILY 05/13/17 07/09/18 MetFORMIN [glucoPHAGE] 1,000 mg PO BID 05/13/17 07/09/18 Atorvastatin [Lipitor] 10 mg PO DAILY 07/09/18 07/09/18 Insulin Degludec [Tresiba] 30 units SC QPM 07/09/18 07/09/18 Omeprazole 40 mg PO DAILY 07/09/18 07/09/18 Oxycodone HCl/Acetaminophen 1 tab PO TID PRN 07/09/18 07/09/18 [Endocet 5-325 Tablet] Review of Systems - Review of Systems Constitutional: Normal. absent: Fatigue, Weight Change, Fevers Eyes: Normal. absent: Vision Changes, Photophobia ENT: Normal. absent: Hearing Changes, Tinnitus, TMJ Pain Respiratory: Normal. absent: SOB, Cough, Sputum Cardiovascular: Normal. absent: Chest Pain, Palpitations, Edema, Orthopnea Gastrointestinal: Abdominal Pain. absent: Stool Changes, Constipation, Diarrhea, Nausea, Vomiting, Appetite Changes Genitourinary Female: Dysuria Skin: Normal. absent: Rash, Pruritis Neurological: Dizziness (when walking). absent: Headache, Focal Weakness Endocrine: Normal. absent: Diaphoresis, Polyuria, Polydipsia Hemo/Lymphatic: Normal. absent: Adenopathy, Easy Bleeding, Easy Bruising <Fred,Madaser - Last Filed: 10/04/18 17:06> Physical Exam Vital Signs Reviewed: Yes Vital Signs Temp Pulse Resp BP Pulse Ox 10/04/18 15:55 50 L 16 127/77 99 10/04/18 15:23 98.3 F 81 17 144/84 96 Temperature: Afebrile Blood Pressure: Normal Pulse: Regular Respiratory Rate: Normal Appearance: Positive for: Well-Appearing, Non-Toxic, Comfortable Pain Distress: None Mental Status: Positive for: Alert and Oriented X 3 Finger Stick Blood Glucose: 162 - Systems Exam Head: Present: Atraumatic, Normocephalic Pupils: Present: PERRL Extroacular Muscles: Present: EOMI Conjunctiva: Present: Normal Mouth: Present: Moist Mucous Membranes Neck: Present: Normal Range of Motion. No: Meningeal Signs, JVD Respiratory/Chest: Present: Clear to Auscultation, Good Air Exchange. No: Respiratory Distress, Accessory Muscle Use, Wheezes, Decreased Breath Sounds Cardiovascular: Present: Regular Rate and Rhythm, Normal S1, S2. No: Tachycardic Abdomen: Present: Normal Bowel Sounds. No: Tenderness, Distention, Peritoneal Signs Upper Extremity: Present: Normal Inspection. No: Cyanosis, Edema Lower Extremity: Present: Normal Inspection, Edema Neurological: Present: GCS=15, CN II-XII Intact, Speech Normal Skin: Present: Warm, Dry, Normal Color. No: Rashes Psychiatric: Present: Alert, Oriented x 3, Normal Insight, Normal Concentration <Fred,Madaser - Last Filed: 10/04/18 17:06> Vital Signs Temp Pulse Resp BP Pulse Ox 10/04/18 17:10 69 18 135/71 96 10/04/18 15:55 75 16 139/78 96 10/04/18 15:23 98.3 F 81 17 144/84 96 <Mike Graf - Last Filed: 10/04/18 20:25> Medical Decision Making ED Course and Treatment: 10/04/18 16:10 Impression 58 yo female w/ PMH of DM2, HTN, Hyperlipidemia comes to ED for evaluation of left arm and leg pain. Of note patient was recently discharged from [facility] [place] for a full workup of stroke which was negative Plan -CT head -CBC -CMP -CXR -UA -Trop Prior Visits All prior lab work and documentation reviewed prior to evaluation Progress Notes pending blood work 10/04/18 17:05 blood work reviewed, patient is comfortably speaking to friends on phone patient informed of her CT head results and told to follow up outpatient with neurology and primary care doctor patient amenable to plan and remembers Dr. Toledo the neurologist from prior admission Re-evaluation Time: 17:06 Reassessment Condition: Re-examined, Improving,but remains with symptoms - Lab Interpretations Lab Results: 10/04/18 16:11 10/04/18 16:11 Lab Results 10/04/18 16:55: Urine Color Yellow, Urine Appearance Clear, Urine pH 6.5, Ur Specific [place] 1.020, Urine Protein Negative, Urine Glucose (UA) Negative, Urine Ketones Negative, Urine Blood Negative, Urine Nitrate Negative, Urine Bilirubin Negative, Urine Urobilinogen 0.2, Ur Leukocyte Esterase Negative 10/04/18 16:11: Sodium 138, Potassium 4.6, Chloride 106, Carbon Dioxide 24, Anion Gap 12, BUN 11, Creatinine 0.6 L, Est GFR ( Amer) > 60, Est GFR (Non-Af Amer) > 60, Random Glucose 163 H, Calcium 10.9 H, Total Bilirubin 0.6, AST 36, ALT 26, Alkaline Phosphatase 106, Lactate Dehydrogenase 459, Total C reatine Kinase 102, Troponin I < 0.01, Total Protein 7.7, Albumin 3.8, Globulin 3.8, Albumin/Globulin Ratio 1.0 L 10/04/18 16:11: WBC 8.7 D, RBC 4.27, Hgb 12.1, Hct 36.7, MCV 85.9, MCH 28.3, MCHC 33.0, RDW 12.5, Plt Count 274, MPV 10.2, Neut % (Auto) 58.2, Lymph % (Auto) 31.2, [place] % (Auto) 5.9, Eos % (Auto) 4.4, Baso % (Auto) 0.3, Lymph # (Auto) 2.7, [place] # (Auto) 0.5, Eos # (Auto) 0.4, Baso # (Auto) 0.03, Absolute Neuts (auto) 5.03 10/04/18 15:41: POC Glucose (mg/dL) 162 H I have reviewed the lab results: Yes Interpretation: No sign. chg./baseline - RAD Interpretation Radiology Orders: Radiology Results Chest X-Ray 10/04/18 16:00 IMPRESSION: No active disease. Head CT 10/04/18 16:00 IMPRESSION: No acute intracranial pathology. Personnel Adviser: Radiologist <Kristian Ibarra - Last Filed: 10/04/18 17:06> - Lab Interpretations Lab Results: Troponin I < 0.01 ng/mL 10/04/18 16:11 Total Bilirubin 0.6 mg/dL (0.2-1.3) 10/04/18 16:11 AST 36 U/L (14-36) 10/04/18 16:11 ALT 26 U/L (7-56) 10/04/18 16:11 Alkaline Phosphatase 106 U/L (38-126) 10/04/18 16:11 Total Protein 7.7 g/dL (5.8-8.3) 10/04/18 16:11 Albumin 3.8 g/dL (3.0-4.8) 10/04/18 16:11 Globulin 3.8 gm/dL 10/04/18 16:11 Albumin/Globulin Ratio 1.0 (1.1-1.8) L 10/04/18 16:11 Urine Color Yellow (YELLOW) 10/04/18 16:55 Urine Appearance Clear (CLEAR) 10/04/18 16:55 Urine pH 6.5 (4.7-8.0) 10/04/18 16:55 Ur Specific [place] 1.020 (1.005-1.035) 10/04/18 16:55 Urine Protein Negative mg/dL (<30 mg/dL) 10/04/18 16:55 Urine Glucose (UA) Negative mg/dL (NEGATIVE) 10/04/18 16:55 Urine Ketones Negative mg/dL (NEGATIVE) 10/04/18 16:55 Urine Blood Negative (NEGATIVE) 10/04/18 16:55 Urine Nitrate Negative (NEGATIVE) 10/04/18 16:55 Urine Bilirubin Negative (NEGATIVE) 10/04/18 16:55 Urine Urobilinogen 0.2 E.U./dL (<1 E.U./dL) 10/04/18 16:55 Ur Leukocyte Esterase Negative Eliecer/uL (NEGATIVE) 10/04/18 16:55 - RAD Interpretation Radiology Orders: 10/04/18 16:00 HEAD W/O CONTRAST [CT] Stat CXR [CHEST PORTABLE] [RAD] Stat <Mike Graf - Last Filed: 10/04/18 20:25> - PA / OVERCASTER / Resident Statement / has reviewed & agrees with the documentation as recorded. / has examined the patient and agrees with the treatment plan. <Mike Graf - Last Filed: 10/04/18 20:25> Disposition/Present on Arrival - Present on Arrival Any Indicators Present on Arrival: Yes History of DVT/PE: No History of Uncontrolled Diabetes: Yes Urinary Catheter: No History of Decub. Ulcer: No History Surgical Site Infection Following: None - Disposition Have Diagnosis and Disposition been Completed?: Yes Disposition Time: 17:07 Patient Plan: Discharge <Kristian Ibarra - Last Filed: 10/04/18 17:06> - Present on Arrival Any Indicators Present on Arrival: No - Disposition Disposition Time: 16:30 <Mike Graf - Last Filed: 10/04/18 20:25> - Disposition Diagnosis: Weakness, Abdominal pain Disposition: HOME/ ROUTINE Condition: GOOD Discharge Instructions (ExitCare): Weakness (ED) Additional Instructions: 1. Please followup with Dr. Toledo neurologist within one week of discharge from hospital. 2. Please followup with primary care doctor within one week of discharge from hospital. Referrals: Fred Armstrong MD [Primary Care Provider] - Follow up with primary Vicente Toledo MD [Staff Provider] - Follow up with primary Forms: [employer] ([place])
[2018-10-04 16:20] LABS: BASO # 0.03 K/mm3 (0.0-2.0); BASO % 0.3 % (0.0-3.0); EOS # 0.4 (0.0-0.7); EOS % 4.4 % (1.5-5.0); HEMOGLOBIN 12.1 g/dL (12.0-16.0); LYMPH # 2.7 (1.2-3.4); LYMPH % 31.2 % (22.0-35.0); MEAN CELL VOLUME 85.9 fl (80.0-105.0); MEAN CORPUSCULAR HEMOGLOBIN 28.3 pg (25.0-35.0); MEAN PLATELET VOLUME 10.2 fl (7.0-11.0); MONO # 0.5 (0.1-0.6); MONO % 5.9 % (1.0-6.0); RBC 4.27 10^6/uL (3.5-6.1); RED CELL DISTRIBUTION WIDTH 12.5 % (11.5-14.5); WHITE BLOOD COUNT 8.7 10^3/uL (4.5-11.0)
[2018-10-04 16:31] LABS: ALBUMIN 3.8 g/dL (3.0-4.8); BLOOD UREA NITROGEN 11 mg/dL (7-21); CALCIUM 10.9 mg/dL (8.4-10.5); GFR NON-AFRICAN AMERICAN > 60
--- NOTE | 2018-10-04 16:35 | CT ---
Date of service: 10/04/2018 PROCEDURE: CT HEAD WITHOUT CONTRAST. HISTORY: weakness in LUE and LLE COMPARISON: CT head dated 07/10/2018. TECHNIQUE: Axial computed tomography images were obtained through the head/brain without intravenous contrast. Radiation dose: Total exam DLP = 1053.69 mGy-cm. This CT exam was performed using one or more of the following dose reduction techniques: Automated exposure control, adjustment of the mA and/or kV according to patient size, and/or use of iterative reconstruction technique. FINDINGS: HEMORRHAGE: No intracranial hemorrhage. BRAIN: No mass effect or edema. No atrophy or chronic microvascular ischemic changes. VENTRICLES: Unremarkable. No hydrocephalus. CALVARIUM: Unremarkable. PARANASAL SINUSES: Unremarkable as visualized. No significant inflammatory changes. MASTOID AIR CELLS: Unremarkable as visualized. No inflammatory changes. OTHER FINDINGS: None. IMPRESSION: No acute intracranial pathology.
--- NOTE | 2018-10-04 16:36 | RAD ---
Date of service: 10/04/2018 HISTORY: r/o infiltrate COMPARISON: Chest radiograph dated 07/09/2018. TECHNIQUE: 1 view obtained. FINDINGS: LUNGS: No active pulmonary disease. Right apical calcified granuloma unchanged. PLEURA: No significant pleural effusion identified, no pneumothorax apparent. CARDIOVASCULAR: Aortic atherosclerotic calcifications. Cardiomediastinal silhouette stably enlarged. OSSEOUS STRUCTURES: Changed. VISUALIZED UPPER ABDOMEN: Normal. OTHER FINDINGS: None. IMPRESSION: No active disease.
[2018-10-04 16:40] LABS: ALT/SGPT 26 U/L (7-56); AST/SGOT 36 U/L (14-36)
[2018-10-04 16:43] LABS: TROPONIN I < 0.01 ng/mL
[2018-10-04 17:03] LABS: PH,URINE 6.5 (4.7-8.0); URINE BILIRUBIN NEGATIVE (NEGATIVE); URINE BLOOD NEGATIVE (NEGATIVE); URINE GLUCOSE (UA) NEGATIVE (NEGATIVE); URINE LEUKOCYTE ESTERASE NEGATIVE Leu/uL (NEGATIVE); URINE PROTEIN NEGATIVE mg/dL (<30 mg/dL); URINE UROBILINOGEN 0.2 E.U./dL (<1 E.U./dL)
[2018-10-04 17:06] LABS: URINE APPEARANCE CLEAR (CLEAR); URINE COLOR YELLOW (YELLOW)
[2018-10-04 17:19] VITALS: BP 135/71; PULSE 69; RESP 18
--- NOTE | 2018-10-05 11:01 | CARD ---
APPROVED REPORT Date of service: 10/04/2018 EKG Measurement Heart [id number] <Conclusion> Normal sinus rhythm Normal Electrocardiogram
== END 2018-10-04 17:48 | disposition home or self-care (01) ==
LOC: ED 15:09
DX: R53.1 Weakness (principal); R10.9 Unspecified abdominal pain; I10 Essential (primary) hypertension; E11.9 Type 2 diabetes mellitus without complications; E78.5 Hyperlipidemia, unspecified; E03.9 Hypothyroidism, unspecified; Z86.73 Personal history of transient ischemic attack (TIA), and cerebral infarction without residual deficits; Z87.891 Personal history of nicotine dependence